=== PATIENT | female | born 1990 | race Caucasian/White ===

== ENCOUNTER → 2020-12-09 09:19 | Outpatient (BNVA) | payer BC, MEDICAID, SELFPAY | PROVIDERS: Visit Provider Obstetrics & Gynecology | DX: Z32.01 Encounter for pregnancy test, result positive (principal) | CPT/HCPCS: 81025 ==

== ENCOUNTER 2020-12-19 13:30 | Emergency (ER) | payer BC, MEDICAID, SELFPAY ==
[2020-12-19 13:48] VITALS: BP 159/88; PULSE 80; RESP 18; TEMP 36.9; O2SAT 100; BMI 36.9
--- NOTE | 2020-12-19 14:37 | US_ITS ---
WS: [id number] Limited obstetrical ultrasound. HISTORY: Vaginal bleeding. COMPARISON: None. Transvaginal and transabdominal imaging is submitted. Uterus is slightly enlarged. Along the endometrial canal is heterogeneous soft tissue. There is a sma ll amount of fluid component with increased soft tissue echogenicity. There is a fluid/fluid layer delgado ggesting hemorrhage. There is no identifiable pole or cardiac activity. No yolk sac. Complex ma terial consistent with retained products of the conception and blood causing mild widening of the end ocervical canal. There is a small amount of free fluid in the cul-de-sac. US/US OB limited [id number] IMPRESSION: 1. Large amount of retained complex material in the endometrium and along the e ndocervical canal. Echogenicity suggest hemorrhagic components with minimal res idual simple fluid. Findings are consistent with incomplete spontaneous abortio n with hemorrhagic material. 2. No cardiac activity or pole identified.
--- NOTE | 2020-12-19 14:52 | PC.PHAR ---
pt states she takes no rx or otc medications-pt states she hasnt had gabapentin 100mg,fluoxetine 20mg,risperidone 1mg lisinopril 20mg and hctz 12.5mg since jul or aug 2020 pt states she was waiting on her insurance
[2020-12-19 14:54] LABS: Basophils # 0.1 10^3/uL (0.0-0.1); Basophils % 0.6 %; Eosinophils # 0.4 10^3/uL (0.0-0.8); Eosinophils % 2.7 %; Hematocrit 42.8 % (37.0-47.0); Hemoglobin 13.8 g/dL (11.5-15.3); Lymphocytes # 2.7 10^3/uL (0.8-4.8); Mean Corpuscular HGB Conc 32.2 g/dL (30.0-36.0); Mean Corpuscular Hemoglobin 26.5 pg (28.0-34.0); Mean Corpuscular Volume 82.3 fL (81-99); Mean Platelet Volume 9.9 fL (7.4-10.4); Monocytes # 0.6 10^3/uL (0.2-0.9); Monocytes % 4.4 %; Neutrophils # 9.88 10^3/uL (1.8-7.7); Neutrophils % 71.9 %; Nucleated Red Blood Cells % 0 %; Platelet Count 346 10^3/cmm (130-400); Red Cell Distribution Width 13.8 % (12.1-15.1); White Blood Count 13.7 10^3/uL (4.0-10.0)
--- NOTE | 2020-12-19 14:55 | W.ED.FEMALGU ---
HPI - Female Genitourinary General: Chief complaint: Urogenital-Female Stated complaint: suspects miscarriage, 7wks Time Seen by Provider: 12/19/20 14:28 History of Present Illness: HPI Narrative: 30-year-old female presents to the emergency room with complaint of vaginal bleeding and pelvic cramping. Patient is Ab1. She has not had this confirmed by ultrasound as being intrauterine. She denies any dysuria urgency or frequency no other abdominal pain no vomiting or diarrhea. Patient has had previous miscarriages this morning she had a syncopal-like episode after standing up lasted for just a few seconds. MD elicited complaint: vaginal bleeding Pertinent past history: prior miscarriages Onset (ago): hour(s) Location of symptoms: pelvis Severity: moderate Quality of pain: cramping Vaginal discharge: none Vaginal bleeding: moderate Exacerbating factors: none Relieving factors: none Associated symptoms: Reports nausea and vaginal bleeding; Deny abdominal pain, short of breath, fevers/chills, headache(s), rash, seizures, syncope, vaginal discharge or weakness Treatment prior to arrival: none Sexual activity: No Date of Last Menstrual Period: 10/31/20 Review of Systems Const: Denies: fever(s), chills, body aches, change in appetite, fatigue or malaise ENMT: Denies: throat pain, ear or mastoid pain, nasal discharge or nasal congestion Card: Denies: syncope Resp: Denies: dyspnea, productive cough or non-productive cough GI: Reports: nausea; Denies: abdominal pain : Denies: vaginal discharge Skin/Breast: Denies: rash or pruritus Neuro: Denies: headache(s) [facility] Female Reproductive History: Date of last menstrual period: 10/31/20 Physical Exam Const: COMMON NORMALS: no acute distress GENERAL APPEARANCE: cooperative and comfortable ORIENTATION/CONSCIOUSNESS: Yes awake, Yes oriented to person, Yes oriented to place and Yes oriented to time HENMT: COMMON NORMALS: normocephalic, atraumatic and hearing grossly normal bilaterally HEAD & SCALP: normocephalic and atraumatic Neck/C-Spine: COMMON NORMALS: full ROM, no lymphadenopathy, supple and no JVD Lymph: LYMPHATIC: no lymphadenopathy noted and no lymphedema noted Resp: COMMON NORMALS: normal respiratory effort, No retractions, No use of accessory muscles and clear to auscultation bilaterally AUSCULTATION: clear to auscultation bilaterally Cardio: COMMON NORMALS: no JVD, regular rate, regular rhythm and No murmurs present (Cardio) RATE: regular rate RHYTHM: regular rhythm GI: COMMON NORMALS: Soft to palpation and No hepatosplenomegaly present AUSCULTATION: Yes normoactive bowel sounds PALPATION: Yes Soft to palpation, No Tenderness to palpation present (GI), No Guarding due to palpation present (GI) and Yes No hepatosplenomegaly present : SPECULUM EXAM - VAGINA: Yes vaginal bleeding OB/EXTERNAL & SPECULUM: vaginal bleeding OTHER: Patient placed in dorsolithotomy position. Speculum introduced cervix visualized scant amount of bleeding. No POC in the office. GC chlamydia and wet mount done. Extremity: COMMON NORMALS: normal to inspection, capillary refill normal, no clubbing, cyanosis or edema, no calf tenderness and no pedal edema Neuro: SENSORIUM/ORIENTATION: Yes oriented to person, Yes oriented to place and Yes oriented to time Skin: COMMON NORMALS: no rashes or lesions noted GENERAL SKIN EXAM: no rashes or lesions noted Course Vital Signs: Vital signs: Vital Signs Temperature 98.4 F 12/19/20 13:48 Pulse Rate 80 12/19/20 13:48 Respiratory Rate 18 12/19/20 13:48 Blood Pressure 159/88 12/19/20 13:48 Pulse Oximetry 100 12/19/20 13:48 MDM - Female MDM Narrative: Medical decision making narrative: Ultrasound shows intrauterine however there is no heart tones. She will need a follow-up beta-hCG and is at least 3 days to reevaluate. Did warn her she could have heavier bleeding before then. The radiologist read it as having POC in the os discussed with the patient she likely will have heavier bleeding and passed some tissue if bleeding becomes excessive she should return to be reevaluated. Lab Data: Labs: Lab Results 12/19/20 12/19/20 12/19/20 Range/Units 14:30 14:38 14:38 WBC 13.7 H (4.0-10.0) 10^3/ uL RBC 5.20 (4.1-5.3) 10^6/u L Hgb 13.8 (11.5-15.3) g/dL Hct 42.8 (37.0-47.0) % MCV 82.3 (81-99) fL MCH 26.5 L (28.0-34.0) pg MCHC 32.2 (30.0-36.0) g/dL RDW 13.8 (12.1-15.1) % Plt Count 346 (130-400) 10^3/c mm MPV 9.9 (7.4-10.4) fL Neut % (Auto) 71.9 % Lymph % (Auto) 20.0 % Atlantic % (Auto) 4.4 % Eos % (Auto) 2.7 % Baso % (Auto) 0.6 % Neut # (Auto) 9.88 H (1.8-7.7) 10^3/u L Lymph # (Auto) 2.7 (0.8-4.8) 10^3/u L [place] # (Auto) 0.6 (0.2-0.9) 10^3/u L Eos # (Auto) 0.4 (0.0-0.8) 10^3/u L Baso # (Auto) 0.1 (0.0-0.1) 10^3/u L Nucleated RBC % (a uto) 0 % Nucleated RBCs # 0.0 /100WBC Sodium (136-145) mmol/L Potassium (3.5-5.1) mmol/L Chloride (98-107) mmol/L Carbon Dioxide (22-29) mmol/L Anion Gap (5-19) BUN (6-20) mg/dL Creatinine (0.5-0.9) mg/dL GFR Calculation (90-130) mL/min Glucose (65-115) mg/dL Calculated Osmolal ity (285-295) mOsm/k g Calcium (8.5-10.5) mg/dL Total Bilirubin (0.15-1.2) mg/dL AST (0-32) U/L ALT (0-33) U/L Alkaline Phosphata se (35-105) IU/L Total Protein (6.6-8.7) g/dL Albumin (3.5-5.2) g/dL Globulin (1.3-4.6) g/dL Ser , Eliceo i-Qnt mIU/mL Urine Color Yellow (Yellow) Urine Appearance Clear (CLEAR) Urine pH 5 (5-7) Ur Specific Gravit y 1.010 (1.005-1.030) Urine Protein Neg (Negative) Urine Glucose (UA) Norm (Normal) Urine Ketones Negative (Negative) Urine Blood 3+ H (Negative) Urine Nitrate Negative (Negative) Urine Bilirubin Neg (Negative) Urine Urobilinogen Norm (Negative) mg/dL Ur Leukocyte Debi ase Negative (Negative) Urine RBC 10-15 H (0-2) /hpf Urine WBC None (0-5) /hpf Ur Squamous Epith Cells None (0-5) /hpf Amorphous Sediment Not Reportable Urine Bacteria Trace (NONE) /hpf Blood Type O Positive Rho(D) Type Positive / 4+ 12/19/20 Range/Units 14:38 WBC (4.0-10.0) 10^3/ uL RBC (4.1-5.3) 10^6/u L Hgb (11.5-15.3) g/dL Hct (37.0-47.0) % MCV (81-99) fL MCH (28.0-34.0) pg MCHC (30.0-36.0) g/dL RDW (12.1-15.1) % Plt Count (130-400) 10^3/c mm MPV (7.4-10.4) fL Neut % (Auto) % Lymph % (Auto) % Atlantic % (Auto) % Eos % (Auto) % Baso % (Auto) % Neut # (Auto) (1.8-7.7) 10^3/u L Lymph # (Auto) (0.8-4.8) 10^3/u L Atlantic # (Auto) (0.2-0.9) 10^3/u L Eos # (Auto) (0.0-0.8) 10^3/u L Baso # (Auto) (0.0-0.1) 10^3/u L Nucleated RBC % (a uto) % Nucleated RBCs # /100WBC Sodium 135 L (136-145) mmol/L Potassium 3.3 L (3.5-5.1) mmol/L Chloride 99 (98-107) mmol/L Carbon Dioxide 24 (22-29) mmol/L Anion Gap 15.3 (5-19) BUN 6 (6-20) mg/dL Creatinine 0.7 (0.5-0.9) mg/dL GFR Calculation 98.3 (90-130) mL/min Glucose 82 (65-115) mg/dL Calculated Osmolal ity 277 L (285-295) mOsm/k g Calcium 9.1 (8.5-10.5) mg/dL Total Bilirubin 0.3 (0.15-1.2) mg/dL AST 10 (0-32) U/L ALT 12 (0-33) U/L Alkaline Phosphata se 89 (35-105) IU/L Total Protein 7.5 (6.6-8.7) g/dL Albumin 4.4 (3.5-5.2) g/dL Globulin 3.1 (1.3-4.6) g/dL Ser , [place] i-Qnt 8029.00 mIU/mL Urine Color (Yellow) Urine Appearance (CLEAR) Urine pH (5-7) Ur Specific Gravit y (1.005-1.030) Urine Protein (Negative) Urine Glucose (UA) (Normal) Urine Ketones (Negative) Urine Blood (Negative) Urine Nitrate (Negative) Urine Bilirubin (Negative) Urine Urobilinogen (Negative) mg/dL Ur Leukocyte Debi ase (Negative) Urine RBC (0-2) /hpf Urine WBC (0-5) /hpf Ur Squamous Epith Cells (0-5) /hpf Amorphous Sediment Urine Bacteria (NONE) /hpf Blood Type Rho(D) Type Discharge Plan Discharge Patient Disposition: Home Clinical Impression: , spontaneous threatened Condition: Stable Prescriptions: No Action No Known Home Medications RF: 0 Discharge Orders: Discharge ED (Routine); Ordered 12/19/20 Ordered By: Prem Gomez Discharge Diet: Usual diet Discharge Activity: Limit activity as instructed Patient Instructions: Opioid Safety Activity Restrictions/Additional Instructions: [facility]. Follow-up with beta-hCG in 3 to 4 days in your primary care doctor's office. If bleeding increases to more than 1 pad per hour return to the emergency room. Coding Level of Care Code ED Reflow Operator for Tommie Gipson
[2020-12-19 15:23] LABS: Add Urine Microscopic? YES; Bilirubin Urine Neg (Negative); Blood Urine 3+ (Negative); Glucose Urine UA Norm (Normal); Ketones Urine Negative (Negative); Leukocyte Esterase Urine Negative (Negative); Nitrate Urine Negative (Negative); Protein Urine Neg (Negative); Urine Appearance Clear (CLEAR); Urine Color Yellow (Yellow); Urobilinogen Urine Norm (Negative); pH Urine 5 (5-7)
[2020-12-19 15:24] LABS: Add Urine Culture? Yes; Bacteria Urine TRACE /hpf
--- NOTE | 2020-12-19 15:47 | PC.NURSE ---
Pelvic exam performed by Dr Gomez, chaperoned by this nurse. Swabs obtained and sent to lab.
[2020-12-19 16:06] LABS: Alanine Aminotransferase 12 U/L (0-33); Albumin Level 4.4 g/dL (3.5-5.2); Alkaline Phosphatase 89 IU/L (35-105); Anion Gap 15.3 (5-19); Aspartate Amino Transferase 10 U/L (0-32); Blood Urea Nitrogen 6 mg/dL (6-20); Calcium 9.1 mg/dL (8.5-10.5); Carbon Dioxide 24 mmol/L (22-29); Chloride 99 mmol/L (98-107); Globulin 3.1 g/dL (1.3-4.6); Glomerular Filtration Rate 98.3 mL/min (90-130); Glucose 82 mg/dL (65-115); Osmolality Calculated 277 mOsm/kg (285-295); Potassium 3.3 mmol/L (3.5-5.1); Sodium 135 mmol/L (136-145); Total Bilirubin 0.3 mg/dL (0.15-1.2); Total Protein 7.5 g/dL (6.6-8.7)
== END 2020-12-19 16:11 | disposition home or self-care (01) ==
PROVIDERS: Nurse Practitioner Family; Emergency Provider Family Medicine
DX: O20.0 Threatened abortion (principal); Z3A.01 Less than 8 weeks gestation of pregnancy
CPT/HCPCS: 76815; 80053; 81001; 84702; 85025; 86900; 87086; 87210; 87491; 87591; 99284

== ENCOUNTER → 2020-12-23 13:52 | Outpatient (BNVA) | payer BC, MEDICAID, SELFPAY | PROVIDERS: Visit Provider Obstetrics & Gynecology | DX: O20.0 Threatened abortion (principal) | CPT/HCPCS: 84702 ==

== ENCOUNTER → 2020-12-26 09:20 | Outpatient (BNVA) | payer BC, MEDICAID, SELFPAY | PROVIDERS: Visit Provider Nurse Practitioner Women's Health | DX: O03.4 Incomplete spontaneous abortion without complication (principal) | CPT/HCPCS: 81000; 84702; 85025 ==

== ENCOUNTER → 2021-01-09 08:42 | Outpatient (BNVA) | payer BC, MEDICAID, SELFPAY | PROVIDERS: Visit Provider Nurse Practitioner Women's Health | DX: O03.4 Incomplete spontaneous abortion without complication (principal); I10 Essential (primary) hypertension | CPT/HCPCS: 84702 ==

== ENCOUNTER 2021-01-27 08:45 | Outpatient (CLI) | payer BC, MEDICAID, SELFPAY ==
--- NOTE | 2021-01-27 08:51 | MM_ITS ---
WS: [id number] BILATERAL DIGITAL DIAGNOSTIC MAMMOGRAM MAMMOGRAPHY WITH CAD CLINICAL INFORMATION: CHANGES IN SKIN;BENJAMÍN BREAST LUMPS HISTORY: Bilateral breast soreness. History of left mastitis COMPARISON: None. TECHNIQUE: Bilateral CC, MLO, and ML views. FINDINGS: Scattered fibroglandular densities bilaterally. Asymmetric density outer left breast. This persists o n spot compression views. Ultrasound is pending. No suspicious abnormalities in the right breast. A f ew incidental punctate calcifications. ULTRASOUND BREAST LEFT TECHNIQUE: Ultrasound left breast focused area of concern. CLINICAL INFORMATION: CHANGES IN SKIN;BENJAMÍN BREAST LUMPS COMPARISON: None. FINDINGS: Ultrasound left breast 12-3 o'clock. Normal underlying breast tissue. No evidence of underlying cysti c or solid mass or lesion. No suspicious abnormalities. MM/[id number] IMPRESSION: BI-RADS: 2-Benign FOLLOW UP: Age 40 Recommend annual screening mammography age 40
== END 2021-01-27 08:46 | disposition home or self-care (01) ==
LOC: RADSHAW 08:48
PROVIDERS: PCP Nurse Practitioner Family; Visit Provider Nurse Practitioner Family
DX: N64.59 Other signs and symptoms in breast (principal); N63.10 Unspecified lump in the right breast, unspecified quadrant; N63.20 Unspecified lump in the left breast, unspecified quadrant
CPT/HCPCS: 76642; 77066

== ENCOUNTER → 2022-02-27 13:07 | Outpatient (BNVA) | payer BC, MEDICAID, SELFPAY | PROVIDERS: Visit Provider Obstetrics & Gynecology | DX: Z34.90 Encounter for supervision of normal pregnancy, unspecified, unspecified trimester (principal) | CPT/HCPCS: 84702 ==

== ENCOUNTER 2022-03-03 12:42 | Outpatient (CLI) | payer BC, MEDICAID, SELFPAY | END 2022-03-03 12:43 | disposition home or self-care (01) | LOC: LAB 12:44 | PROVIDERS: Visit Provider Obstetrics & Gynecology | DX: O20.0 Threatened abortion (principal) | CPT/HCPCS: 36415; 84702 ==

== ENCOUNTER → 2022-03-24 08:48 | Outpatient (BNVA) | payer BC, MEDICAID, SELFPAY | PROVIDERS: Visit Provider Obstetrics & Gynecology | DX: O03.9 Complete or unspecified spontaneous abortion without complication (principal) | CPT/HCPCS: 84702 ==

== ENCOUNTER → 2022-05-11 10:39 | Outpatient (BNVA) | payer BC, MEDICAID, SELFPAY | PROVIDERS: Visit Provider Obstetrics & Gynecology | DX: N96 Recurrent pregnancy loss (principal) | CPT/HCPCS: 85613; 85730; 86038; 86146; 86147 ==

== ENCOUNTER → 2022-09-03 09:50 | Outpatient (BNVA) | payer BC, MEDICAID, SELFPAY | PROVIDERS: Visit Provider Nurse Practitioner Women's Health | DX: Z32.00 Encounter for pregnancy test, result unknown (principal); N92.6 Irregular menstruation, unspecified | CPT/HCPCS: 81000; 81025 ==

== ENCOUNTER 2022-09-07 12:31 | Outpatient (CLI) | payer BC, MEDICAID, SELFPAY ==
[2022-09-07 14:29] LABS: Alanine Aminotransferase 25 U/L (0-33); Albumin Level 4.4 g/dL (3.5-5.2); Alkaline Phosphatase 61 U/L (35-105); Aspartate Amino Transferase 17 U/L (0-32); Globulin 2.7 g/dL (1.3-4.6); Total Bilirubin 0.3 mg/dL (0.15-1.2); Total Protein 7.1 g/dL (6.6-8.7)
[2022-09-11 12:24] LABS: Total Bile Acids 12 umol/L (0-19)
== END 2022-09-07 12:32 | disposition home or self-care (01) ==
LOC: LAB 12:35
PROVIDERS: PCP Family Medicine; Visit Provider Nurse Practitioner Women's Health
DX: N92.6 Irregular menstruation, unspecified (principal); L29.9 Pruritus, unspecified
CPT/HCPCS: 36415; 80076; 82010; 84702

== ENCOUNTER 2022-09-10 08:41 | Emergency (ER) | payer BC, MEDICAID, SELFPAY ==
[2022-09-10 08:44] VITALS: BP 136/96; PULSE 91; RESP 18; TEMP 36.8; O2SAT 100; BMI 38.4
--- NOTE | 2022-09-10 09:09 | PC.PHAR ---
PT STATES SHE HAS ONLY BEEN TAKING THE MEDICATIONS ENTERED PT STATES SHE HAS BEEN TAKING LABETALOL 100MG BID STATES SHE HAD A BUILD UP EXT MED HISTORY SHOWS LAST FILLED 04/29/22 30D/S-PT STATES SINCE July SHE HAS STOP TAKING QUETIAPINE 200MG DAILY (FILLED 08/12/22 30D/S)-LISINOPRIL 40MG QAM AND 20MG PO QPM (FILLED 08/12/22 30D/S)-GABAPENTIN 100MG TAKE 200MG TID (FILLED 07/27/22 90D/S)-FENOFIBRATE 145MG DAILY (FILLED 07/21/22 30D/S)-LIPITOR 20MG DAILY (FILLED 07/13/22 30D/S)-TRAZODONE 50MG TAKE 100MG PO BEDTIME PRN (FILLED 07/13/22 30D/S)-FLUOXETINE 20MG DAILY (FILLED 07/13/22 30D/S)-BUPROPION XL 300MG QAM (FILLED 07/13/22 30D/S)-
[2022-09-10 09:26] VITALS: BP 136/96; PULSE 91; RESP 18; TEMP 36.8; O2SAT 100
[2022-09-10] MEDS: sodium chloride 0.9% 1,000 ML 999 ML IV (09:30)
--- NOTE | 2022-09-10 09:36 | W.ED.PREGNAN ---
HPI - General: Chief complaint: Abdominal Pain Stated complaint: 7 weeks and cramping Time Seen by Provider: 09/10/22 09:06 Source: patient Mode of arrival: ambulatory History of Present Illness: 32-year-old female presents presents emergency room with complaint of vaginal discharge. Began yesterday. Patient is G8, P7 SAB 3. She is currently at 7 weeks gestation with a EDC of April 27, 2023. No details on previous miscarriage given by the patient at the bedside. She has psychiatric issues but no major medical issues she did have borderline gestational hypertension previously. She is currently on labetalol. According to chart patient is O+. MD Complaint: vaginal discharge Onset (ago): day(s) Pain Consistency: intermittent Location: pelvis Severity: mild Quality: Cramping Relieving factors: none Exacerbating factors: none Vaginal discharge: other (Brownish discharge) Date of Last Menstrual Period: 10/31/20 Associated symptoms: Reports vaginal discharge; Deny abdominal pain, dyspareunia, dysuria, headache(s), malaise, nausea, rash, seizures, short of breath, syncope, vaginal bleeding, visual changes, vomiting or weakness Review of Systems Const: Denies: fever(s), chills, fatigue or malaise ENMT: Denies: throat pain, ear or mastoid pain, nasal discharge or nasal congestion Card: Denies: chest pain or syncope Resp: Denies: dyspnea, productive cough or non-productive cough GI: Denies: abdominal pain, nausea or vomiting : Reports: vaginal discharge; Denies: dysuria or dyspareunia Skin/Breast: Denies: rash or pruritus Neuro: Denies: headache(s) PFS ED PFSH: Medical History Anxiety and depression Has had symptoms on and off for years and is being managed by primary care provider. She has a referral to see behavioral health care but has not seen them as yet Hypertension Diagnosed in 2017 and is on medication managed by PMD. 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 [facility] Surgical History History of tonsillectomy and adenoidectomy (~1997) polyps removed Hx of knee surgery R knee x 2 2014 2015 Family History Mother Diabetes Hypercholesteremia Hypertension Father Diabetes Hypercholesteremia Hypertension Grandfather Diabetes Maternal and Paternal Hypercholesteremia Maternal and Paternal Hypertension Maternal and Paternal Stroke Maternal Heart disease maternal and paternal Grandmother Diabetes Maternal and Paternal Hypercholesteremia Maternal and Paternal Hypertension Maternal and Paternal Heart disease maternal and paternal Denies family history of Colon cancer Ovarian cancer Breast cancer Uterine cancer Thyroid condition Female Reproductive History: Date of last menstrual period: 10/31/20 Physical Exam Const: GENERAL APPEARANCE: cooperative and comfortable ORIENTATION/CONSCIOUSNESS: Yes awake, Yes oriented to person, Yes oriented to place and Yes oriented to time HENMT: COMMON NORMALS: normocephalic, atraumatic, hearing grossly normal bilaterally and external ears normal HEAD & SCALP: normocephalic and atraumatic EXTERNAL EAR: Yes external ears normal Resp: COMMON NORMALS: normal respiratory effort, No retractions, No use of accessory muscles and clear to auscultation bilaterally AUSCULTATION: clear to auscultation bilaterally Cardio: COMMON NORMALS: regular rate, regular rhythm and No murmurs present (Cardio) RATE: regular rate RHYTHM: regular rhythm GI: COMMON NORMALS: Soft to palpation and No hepatosplenomegaly present AUSCULTATION: Yes normoactive bowel sounds PALPATION: Yes Soft to palpation, No Tenderness to palpation present (GI), No Guarding due to palpation present (GI) and Yes No hepatosplenomegaly present : SPECULUM EXAM - VAGINA: No vaginal bleeding OB/EXTERNAL & SPECULUM: No vaginal bleeding OTHER: Patient placed in dorsolithotomy position normal external female genitalia speculum introduced cervix visualized is normal no active bleeding no fluid leak noted. GC chlamydia and wet mount done Extremity: COMMON NORMALS: normal to inspection, capillary refill normal, no clubbing, cyanosis or edema, no calf tenderness and no pedal edema Neuro: SENSORIUM/ORIENTATION: Yes oriented to person, Yes oriented to place and Yes oriented to time Skin: COMMON NORMALS: no rashes or lesions noted GENERAL SKIN EXAM: no rashes or lesions noted Course Vital Signs: Vital signs: Vital Signs Temperature 98.2 F 09/10/22 09:26 Pulse Rate 91 09/10/22 09:26 Respiratory Rate 18 09/10/22 09:26 Blood Pressure 136/96 09/10/22 09:26 Pulse Oximetry 100 09/10/22 09:26 Oxygen Delivery Me thod 09/10/22 09:26 MDM - OB/Uterine Contractions Medical Decision Making Wet positive for bacterial vaginosis. Treat patient with Diclegis for hyperemesis follow-up with primary OB if is further problems. Blood pressure normotensive at this time remain off of medications further instructions per her primary OB. Medical Records I reviewed the patient's medical records. Lab Data I reviewed the patient's lab results. Laboratory Results Urine Color Yellow (Yellow) 09/10/22 09:30 Urine Appearance Clear (CLEAR) 09/10/22 09:30 Urine pH 5 (5-7) 09/10/22 09:30 Ur Specific [place] 1.030 (1.005-1.030) 09/10/22 09:30 Urine Protein Neg (Negative) 09/10/22 09:30 Urine Glucose (UA) Norm (Normal) 09/10/22 09:30 Urine Ketones Negative (Negative) 09/10/22 09:30 Urine Blood Neg (Negative) 09/10/22 09:30 Urine Nitrate Negative (Negative) 09/10/22 09:30 Urine Bilirubin Neg (Negative) 09/10/22 09:30 Urine Urobilinogen Neg mg/dL (Negative) 09/10/22 09:30 Ur Leukocyte Esterase Negative (Negative) 09/10/22 09:30 Discharge Plan Discharge Patient Disposition: Home Clinical Impression: Bacterial vaginosis, Hyperemesis gravidarum Condition: Stable Prescriptions: New metronidazole 500 mg tablet 500 mg PO BID 10 Days Qty: 20 0RF Diclegis 10-10 mg tablet,delayed release (DR/EC) 1 tab PO BID Qty: 90 0RF Rx Instructions: 2 tablets in the morning and 1 tablet at night. No Action labetalol 100 mg tablet 100 mg PO BID omega 4-ruc-kva-fish oil [Fish Oil] 300-1,000 mg capsule 2 cap PO DAILY Tylenol Ex Str Rapid Release 500 mg Tablet 1,000 mg PO Q6H PRN (Reason: Pain) M-Domenica Plus 27 mg iron- 1 mg tablet 1 tab PO DAILY ondansetron 4 mg tablet,disintegrating 4 mg PO Q6H PRN (Reason: Nausea And Vomiting) Discharge Orders: Discharge ED (Routine); Ordered 09/10/22 Ordered By: Prem Gomez Referrals: Jovany Anderson MD [Primary Care Provider] - Discharge Diet: Usual diet Discharge Activity: Resume usual activity Patient Instructions: Opioid Safety, Pain Management Activity Restrictions/Additional Instructions: You are seen today for nausea and vomiting and cramping. The vaginal discharge is due to bacterial vaginosis. Will start on metronidazole 1 tablet twice daily for 10 days. Additionally had symptoms of hyperemesis we will give you Diclegis to use for prophylaxis 1 tablet in the morning 2 tablets at night follow-up with your primary care doctor or OB within the next week. Coding Level of Care Code ED Jai Alai Player for Chg Fwd Exam Comprehensive
[2022-09-10 09:42] LABS: Add Urine Microscopic? NO; Charge for UA Resulting for Rev
[2022-09-10 09:46] LABS: Bilirubin Urine Neg (Negative); Blood Urine Neg (Negative); Glucose Urine UA Norm (Normal); Ketones Urine Negative (Negative); Leukocyte Esterase Urine Negative (Negative); Nitrate Urine Negative (Negative); Protein Urine Neg (Negative); Urine Appearance Clear (CLEAR); Urine Color Yellow (Yellow); Urobilinogen Urine Neg (Negative); pH Urine 5 (5-7)
[2022-09-10] MEDS: promethazine 25 mg/mL SDV 1 mL IM (11:36)
== END 2022-09-10 12:23 | disposition home or self-care (01) ==
PROVIDERS: Emergency Provider Family Medicine; PCP Family Medicine
DX: O21.0 Mild hyperemesis gravidarum (principal); O23.591 Infection of other part of genital tract in pregnancy, first trimester; Z3A.01 Less than 8 weeks gestation of pregnancy
CPT/HCPCS: 81003; 87210; 87491; 87591; 87661; 96360; 96372; 99284; J2550; J7030

== ENCOUNTER → 2022-09-24 10:01 | Outpatient (BNVA) | payer BC, MEDICAID, SELFPAY | PROVIDERS: PCP Family Medicine; Visit Provider Obstetrics & Gynecology | DX: Z36.87 Encounter for antenatal screening for uncertain dates (principal); Z3A.09 9 weeks gestation of pregnancy | CPT/HCPCS: 76801 ==

== ENCOUNTER 2022-09-24 11:14 | Outpatient (CLI) | payer BC, MEDICAID, SELFPAY ==
--- NOTE | 2022-09-24 11:36 | ECG_ITS ---
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 Measurements Intervals [place] Rate: 75 P: 37 VT: 129 QRS: 28 QRSD: 94 T: 30 QT: 369 QTc: 412 Interpretive Statements SINUS RHYTHM MINIMAL ST DEPRESSION [0.025+ mV ST DEPRESSION] No previous ECG available for comparison Electronically Signed On 09-24-2022 19:02:42 INSPECTOR FINAL ASSEMBLY MECHANICAL by Jorge Crane M.D. [email or web address]
== END 2022-09-24 11:15 | disposition home or self-care (01) ==
LOC: RT 11:16
PROVIDERS: PCP Family Medicine; Visit Provider Nurse Practitioner Women's Health
DX: I49.9 Cardiac arrhythmia, unspecified (principal)
CPT/HCPCS: 93005

== ENCOUNTER → 2022-10-05 10:00 | Outpatient (BNVA) | payer BC, MEDICAID, SELFPAY | PROVIDERS: PCP Family Medicine; Visit Provider Obstetrics & Gynecology | DX: O09.899 Supervision of other high risk pregnancies, unspecified trimester (principal) | CPT/HCPCS: 80307; 81000; 87086 ==

== ENCOUNTER 2022-10-06 11:42 | Outpatient (CLI) | payer BC, MEDICAID, SELFPAY ==
[2022-10-06 12:39] LABS: Hematocrit 39.1 % (37.0-47.0); Hemoglobin 13.2 g/dL (11.5-15.3); Mean Corpuscular HGB Conc 33.8 g/dL (30.0-36.0); Mean Corpuscular Hemoglobin 28.3 pg (28.0-34.0); Mean Corpuscular Volume 83.7 fl (81-99); Mean Platelet Volume 9.9 fL (7.4-10.4); Platelet Count 320 10^3/cmm (130-400); Red Blood Count 4.67 10^6/uL (4.1-5.3); Red Cell Distribution Width 14.6 % (12.1-15.1)
[2022-10-06 12:56] LABS: Estmated Average Glucose 117; Hemoglobin A1C 5.7 % (4.0-6.0)
[2022-10-06 13:24] LABS: Rubella IgG 162.2 IU/mL (0.0-10.0)
[2022-10-06 13:25] LABS: Hepatitis B Surface Antigen Non-Reactive (Nonreactive); Hepatitis C Virus Antibody Non-Reactive (Nonreactive)
[2022-10-06 14:06] LABS: HIV 1 & 2 Antibody Non-Reactive (Non-Reactiv); HIV 1 & 2 Antigen Non-Reactive (Non-Reactiv)
== END 2022-10-06 11:43 | disposition home or self-care (01) ==
PROVIDERS: PCP Family Medicine; Visit Provider Obstetrics & Gynecology
DX: O09.899 Supervision of other high risk pregnancies, unspecified trimester (principal)
CPT/HCPCS: 36415; 83036; 85027; 86762; 86803; 86850; 86900; 87340; 87806

== ENCOUNTER 2022-10-16 14:46 | Emergency (ER) | payer BC, MEDICAID, SELFPAY ==
[2022-10-16 15:13] LABS: Basophils # 0.1 10^3/uL (0.0-0.1); Basophils % 0.4 %; Eosinophils # 0.3 10^3/uL (0.0-0.8); Eosinophils % 2.4 %; Hematocrit 36.6 % (37.0-47.0); Hemoglobin 12.5 g/dL (11.5-15.3); Lymphocytes # 2.3 10^3/uL (0.8-4.8); Lymphocytes % 19.1 %; Mean Corpuscular HGB Conc 34.2 g/dL (30.0-36.0); Mean Corpuscular Hemoglobin 28.5 pg (28.0-34.0); Mean Corpuscular Volume 83.4 fl (81-99); Mean Platelet Volume 9.7 fL (7.4-10.4); Monocytes # 0.6 10^3/uL (0.2-0.9); Monocytes % 4.8 %; Neutrophils # 8.65 10^3/uL (1.8-7.7); Neutrophils % 72.9 %; Nucleated Red Blood Cells % 0 %; Platelet Count 305 10^3/cmm (130-400); Red Blood Count 4.39 10^6/uL (4.1-5.3); Red Cell Distribution Width 14.6 % (12.1-15.1); White Blood Count 11.9 10^3/uL (4.0-10.0)
[2022-10-16 15:20] VITALS: BP 156/90; PULSE 74; RESP 16; TEMP 36.7; O2SAT 98
[2022-10-16 15:35] LABS: Alanine Aminotransferase 13 U/L (0-33); Albumin Level 3.9 g/dL (3.5-5.2); Alkaline Phosphatase 62 U/L (35-105); Anion Gap 17.7 (5-19); Aspartate Amino Transferase 14 U/L (0-32); Blood Urea Nitrogen 6 mg/dL (6-20); Calcium 9.6 mg/dL (8.5-10.5); Carbon Dioxide 23 mmol/L (22-29); Chloride 101 mmol/L (98-107); Globulin 2.7 g/dL (1.3-4.6); Glucose 86 mg/dL (65-115); Osmolality Calculated 283 mOsm/kg (285-295); Potassium 3.7 mmol/L (3.5-5.1); Sodium 138 mmol/L (136-145); Total Bilirubin 0.2 mg/dL (0.15-1.2); Total Protein 6.6 g/dL (6.6-8.7)
[2022-10-16 18:54] LABS: Glucose Point of Care 89 mg/dL (70-110)
== END 2022-10-16 17:08 | disposition left against medical advice (07) ==
PROVIDERS: Physician Assistant; Emergency Provider Family Medicine; PCP Family Medicine
DX: Z53.21 Procedure and treatment not carried out due to patient leaving prior to being seen by health care provider (principal)
CPT/HCPCS: 36415; 36416; 80053; 81000; 82962; 85025; 87491; 87591; 87661

== ENCOUNTER → 2022-11-13 07:53 | Outpatient (BNVA) | payer BC, SELFPAY | PROVIDERS: PCP Family Medicine; Visit Provider Nurse Practitioner Women's Health | DX: O09.899 Supervision of other high risk pregnancies, unspecified trimester (principal); O10.919 Unspecified pre-existing hypertension complicating pregnancy, unspecified trimester; O21.9 Vomiting of pregnancy, unspecified; F41.9 Anxiety disorder, unspecified; F32.A Depression, unspecified; F60.3 Borderline personality disorder | CPT/HCPCS: 81000 ==

== ENCOUNTER → 2022-12-09 14:56 | Outpatient (BNVA) | payer BC, SELFPAY | PROVIDERS: PCP Family Medicine; Visit Provider Obstetrics & Gynecology | DX: Z34.92 Encounter for supervision of normal pregnancy, unspecified, second trimester (principal) | CPT/HCPCS: 76805 ==

== ENCOUNTER → 2022-12-14 14:00 | Outpatient (BNVA) | payer BC, MEDICAID, SELFPAY | PROVIDERS: PCP Family Medicine; Visit Provider Obstetrics & Gynecology | DX: O09.899 Supervision of other high risk pregnancies, unspecified trimester (principal); Z3A.00 Weeks of gestation of pregnancy not specified | CPT/HCPCS: 81000 ==

== ENCOUNTER → 2023-01-11 14:22 | Outpatient (BNVA) | payer BC, MEDICAID, SELFPAY | PROVIDERS: PCP Family Medicine; Visit Provider Obstetrics & Gynecology | DX: O09.899 Supervision of other high risk pregnancies, unspecified trimester (principal) | CPT/HCPCS: 81000; 82950; 87086 ==

== ENCOUNTER → 2023-02-04 15:16 | Outpatient (BNVA) | payer BC, MEDICAID, SELFPAY | PROVIDERS: PCP Family Medicine; Visit Provider Obstetrics & Gynecology | DX: P08.1 Other heavy for gestational age newborn (principal) | CPT/HCPCS: 76816 ==

== ENCOUNTER → 2023-02-08 13:17 | Outpatient (BNVA) | payer BC, MEDICAID, SELFPAY | PROVIDERS: PCP Family Medicine; Visit Provider Obstetrics & Gynecology | DX: O09.899 Supervision of other high risk pregnancies, unspecified trimester (principal) | CPT/HCPCS: 81000 ==

== ENCOUNTER → 2023-02-19 15:50 | Outpatient (BNVA) | payer BC, MEDICAID, SELFPAY | PROVIDERS: PCP Family Medicine; Visit Provider Obstetrics & Gynecology | DX: O09.899 Supervision of other high risk pregnancies, unspecified trimester (principal); Z3A.30 30 weeks gestation of pregnancy | CPT/HCPCS: 81000; 85025 ==

== ENCOUNTER → 2023-03-05 15:28 | Outpatient (BNVA) | payer BC, MEDICAID, SELFPAY | PROVIDERS: PCP Family Medicine; Visit Provider Obstetrics & Gynecology | DX: O09.899 Supervision of other high risk pregnancies, unspecified trimester (principal); Z3A.32 32 weeks gestation of pregnancy | CPT/HCPCS: 81000; 82728; 83550 ==

== ENCOUNTER 2023-03-12 18:34 | Outpatient (CLI) | payer BC, SELFPAY ==
[2023-03-12] VITALS (9 sets, daily range): BP systolic 131–142; BP diastolic 78–89; PULSE 76–82; RESP 18; BMI 42.3
--- NOTE | 2023-03-14 18:07 | P.TNLD_ITS ---
OB L&D Triage Visit Information: Date of evaluation: 03/12/23 Comments/Additional reason(s) for visit: 33 y.o. A3 EDC April 28, 2023 At 33 w 3 d With chronic gestational hypertension On labetolol 100 mg po bid Presents to L&D because her BP at home was elevated to 150 / 90 No headache, blurry vision, abdominal pain No bleeding, fluid leakage + active movements Evaluation: monitor accelerations: Present 15x15 Vital signs: Weight 273 lbs; 5?6? VS: BPs see nursing record Awake, alert, comfortable Lungs: clear Cor: RRR Abd: soft, nontender Ext: no edema Care TYRA Calculator Estimated Delivery Date Method Current WG Current Estimate 04/28/23 LMP (Certain) 33w 4d Other Estimates 04/28/23 Ultrasound #1 33w 4d Specific Issues/Plans * N/V * CHRONIC HTN * ANXIETY/DEPRESSION/BORDERLINE PERSONALITY Final Diagnosis Final Diagnosis (1) Supervision of other high-risk : Status: Acute Code(s): O09.899 - Supervision of other high risk pregnancies, unspecified trimester (2) Chronic hypertension in : Plan: on labetolol BPs here borderline high Patient asymptomatic Plan continue labetolol Collect 24-h urine for protein, along with CBC, CMP f/u with Dr. Tang next week Call / return if headache, malaise, swelling, blurry vision, abdominal pain, vaginal bleeding, or fluid leakage Status: Acute Code(s): O10.919 - Unspecified pre-existing hypertension complicating , unspecified trimester Coding Level of Care Code Acute Code for Chg Fwd Diagnoses Supervision of other high-risk O09.899 Chronic hypertension in O10.919 Time Spent (min) 30
== END 2023-03-12 20:56 | disposition home or self-care (01) ==
LOC: OPOB 18:35 → OBGYN 18:40
PROVIDERS: PCP Family Medicine; Visit Provider Obstetrics & Gynecology
DX: O09.899 Supervision of other high risk pregnancies, unspecified trimester (principal); O10.919 Unspecified pre-existing hypertension complicating pregnancy, unspecified trimester; Z3A.33 33 weeks gestation of pregnancy
CPT/HCPCS: 59025; 99211

== ENCOUNTER 2023-03-14 07:00 | Outpatient (CLI) | payer BC, MEDICAID, SELFPAY ==
[2023-03-14 07:00] VITALS: BMI 41.6
[2023-03-14 07:30] VITALS: BP 141/86; PULSE 80
[2023-03-14 07:35] LABS: Basophils % 0.3 %; Eosinophils # 0.2 10^3/uL (0.0-0.8); Eosinophils % 2.5 %; Hematocrit 29.9 % (37.0-47.0); Hemoglobin 10.1 g/dL (11.5-15.3); Lymphocytes % 21.1 %; Mean Corpuscular HGB Conc 33.8 g/dL (30.0-36.0); Mean Corpuscular Hemoglobin 28.8 pg (28.0-34.0); Mean Corpuscular Volume 85.2 fl (81-99); Mean Platelet Volume 10.6 fL (7.4-10.4); Monocytes # 0.5 10^3/uL (0.2-0.9); Monocytes % 5.3 %; Neutrophils # 6.64 10^3/uL (1.8-7.7); Neutrophils % 70.3 %; Nucleated Red Blood Cells % 0 %; Platelet Count 210 10^3/cmm (130-400); Red Blood Count 3.51 10^6/uL (4.1-5.3); Red Cell Distribution Width 14.6 % (12.1-15.1); White Blood Count 9.5 10^3/uL (4.0-10.0)
[2023-03-14 07:50] VITALS: BP 140/83; PULSE 83
[2023-03-14 08:00] LABS: Alanine Aminotransferase 13 U/L (0-33); Albumin Level 3.3 g/dL (3.5-5.2); Alkaline Phosphatase 100 U/L (35-105); Aspartate Amino Transferase 17 U/L (0-32); Blood Urea Nitrogen 2 mg/dL (6-20); Calcium 8.7 mg/dL (8.5-10.5); Carbon Dioxide 25 mmol/L (22-29); Chloride 101 mmol/L (98-107); Globulin 2.7 g/dL (1.3-4.6); Glomerular Filtration Rate 115.1 mL/min (90-130); Glucose 87 mg/dL (65-115); Osmolality Calculated 280 mOsm/kg (285-295); Sodium 137 mmol/L (136-145); Total Bilirubin 0.2 mg/dL (0.15-1.2); Uric Acid 5.1 mg/dL (2.4-5.7)
[2023-03-14 08:09] LABS: Urine Total Protein 9.6 mg/dL (0-150)
[2023-03-14 08:10] VITALS: BP 132/88; PULSE 78
[2023-03-14 08:12] LABS: Total Volume, Urine 1350 mL; Urine Total Protein 24 Hour 129.6 mg/24hr (0-150)
[2023-03-14 08:30] VITALS: BP 132/88; PULSE 78; RESP 16; TEMP 36.3
== END 2023-03-14 08:30 | disposition home or self-care (01) ==
LOC: OPOB 07:10 → OBGYN 07:14
PROVIDERS: PCP Family Medicine; Visit Provider Obstetrics & Gynecology
DX: O10.919 Unspecified pre-existing hypertension complicating pregnancy, unspecified trimester (principal); Z3A.33 33 weeks gestation of pregnancy
CPT/HCPCS: 36415; 59025; 80053; 84156; 84550; 85025; 99211

== ENCOUNTER 2023-03-17 23:45 | Outpatient (CLI) | payer BC, MEDICAID, SELFPAY ==
[2023-03-18] VITALS (8 sets, daily range): BP systolic 130–153; BP diastolic 81–106; PULSE 81–110; RESP 15–16; TEMP 36.2; BMI 41.0
[2023-03-18 00:32] LABS: Nitrazine Paper, PH Negative
[2023-03-18 00:53] LABS: Actim Prom Negative
[2023-03-18 00:55] LABS: Bilirubin Urine 1+ (Negative); Blood Urine 2+ (Negative); Glucose Urine UA Norm (Normal); Ketones Urine 1+ (Negative); Leukocyte Esterase Urine 2+ (Negative); Nitrate Urine Negative (Negative); Protein Urine Trace (Negative); RBC Urine 0-4 /hpf (0-2); Specific Gravity, Urine 1.025 (1.005-1.030); Urine Appearance Hazy (CLEAR); Urine Color Yellow (Yellow); Urobilinogen Urine 1 mg/dL (Negative); pH Urine 6 (5-7)
[2023-03-18 00:56] LABS: Add Urine Culture? No; Bacteria Urine 2+ /hpf; Calcium Oxalate Crystals Urine 0-4 /hpf; Mucus Urine 2+ /hpf; Squamous Epithelial Cell Urine 15-25 /hpf (0-5)
[2023-03-18 02:12] LABS: Protein Urine 1+ (Negative); Specific Gravity, Urine 1.025 (1.005-1.030); Urine Appearance Hazy (CLEAR); Urine Color Yellow (Yellow); pH Urine 6 (5-7)
[2023-03-18 02:13] LABS: Bacteria Urine 2+ /hpf; Bilirubin Urine 1+ (Negative); Blood Urine Neg (Negative); Glucose Urine UA Norm (Normal); Ketones Urine 1+ (Negative); Leukocyte Esterase Urine Negative (Negative); Mucus Urine 3+ /hpf; Nitrate Urine Negative (Negative); RBC Urine 0-4 /hpf (0-2); Urobilinogen Urine 4 mg/dL (Negative); WBC Urine 0-4 /hpf (0-5)
[2023-03-18 02:14] LABS: Add Urine Culture? No
== END 2023-03-18 01:30 | disposition home or self-care (01) ==
LOC: OPOB 23:51 → OBGYN 23:53
PROVIDERS: PCP Family Medicine; Visit Provider Obstetrics & Gynecology
DX: O26.893 Other specified pregnancy related conditions, third trimester (principal); N89.8 Other specified noninflammatory disorders of vagina; Z3A.34 34 weeks gestation of pregnancy
CPT/HCPCS: 59025; 81001; 83986; 84112; 87086; 99211

== ENCOUNTER → 2023-03-19 11:44 | Outpatient (BNVA) | payer BC, MEDICAID, SELFPAY | PROVIDERS: PCP Family Medicine; Visit Provider Obstetrics & Gynecology | DX: O09.899 Supervision of other high risk pregnancies, unspecified trimester (principal); Z3A.34 34 weeks gestation of pregnancy | CPT/HCPCS: 81000 ==

== ENCOUNTER → 2023-04-09 08:52 | Outpatient (BNVA) | payer BC, MEDICAID, SELFPAY | PROVIDERS: PCP Family Medicine; Visit Provider Obstetrics & Gynecology | DX: O09.899 Supervision of other high risk pregnancies, unspecified trimester (principal); O10.919 Unspecified pre-existing hypertension complicating pregnancy, unspecified trimester; O21.9 Vomiting of pregnancy, unspecified; F41.9 Anxiety disorder, unspecified; F32.A Depression, unspecified; F60.3 Borderline personality disorder; O99.013 Anemia complicating pregnancy, third trimester; Z3A.00 Weeks of gestation of pregnancy not specified | CPT/HCPCS: 81000; 87081; 87086 ==

== ENCOUNTER 2023-04-15 22:02 | Inpatient (IN) | payer BC, SELFPAY ==
[2023-04-15] VITALS (11 sets, daily range): BP systolic 157–187; BP diastolic 90–110; PULSE 71–90; BMI 41.5
[2023-04-15 22:25] LABS: Bilirubin Urine Neg (Negative); Blood Urine Neg (Negative); Glucose Urine UA Norm (Normal); Ketones Urine 3+ (Negative); Leukocyte Esterase Urine 2+ (Negative); Nitrate Urine Negative (Negative); Protein Urine Trace (Negative); RBC Urine 0-4 /hpf (0-2); Urine Appearance SL Hazy (CLEAR); Urine Color Yellow (Yellow); Urobilinogen Urine 4 mg/dL (Negative); pH Urine 7 (5-7)
[2023-04-15 22:26] LABS: Add Urine Culture? No; Amorphous Sediment Urine 1+ /hpf; Bacteria Urine 1+ /hpf; Mucus Urine 3+ /hpf; Squamous Epithelial Cell Urine 15-25 /hpf (0-5)
[2023-04-15 22:48] LABS: Amphetamines Screen Urine Negative (Negative); Barbiturates Screen Urine Negative (Negative); Benzodiazepines Screen Urine Positive (Negative); Cocaine Screen Urine Negative (Negative); Opiate Screen Urine Negative (Negative); PCP Screen Urine Negative (Negative); THC Screen Urine Positive (Negative)
[2023-04-15] MEDS: dextrose 5%-lactated ringers 1,000 ML 125 ML IV (23:21)
[2023-04-15] MEDS: labetalol 5 mg/mL SDV 20mL 20 MG IVP (23:24)
[2023-04-15] MEDS: metoclopramide 5 mg/mL SDV 2 mL 10 MG IV (23:34)
[2023-04-15 23:35] LABS: Basophils % 0.2 %; Eosinophils # 0.1 10^3/uL (0.0-0.8); Eosinophils % 0.7 %; Lymphocytes # 1.7 10^3/uL (0.8-4.8); Lymphocytes % 13.6 %; Mean Corpuscular HGB Conc 34.5 g/dL (30.0-36.0); Mean Corpuscular Hemoglobin 29.2 pg (28.0-34.0); Mean Corpuscular Volume 84.8 fl (81-99); Mean Platelet Volume 10.9 fL (7.4-10.4); Monocytes # 0.6 10^3/uL (0.2-0.9); Neutrophils # 9.89 10^3/uL (1.8-7.7); Neutrophils % 79.9 %; Nucleated Red Blood Cells % 0 %; Platelet Count 228 10^3/cmm (130-400); Red Blood Count 3.42 10^6/uL (4.1-5.3); Red Cell Distribution Width 14.9 % (12.1-15.1); White Blood Count 12.4 10^3/uL (4.0-10.0)
[2023-04-15 23:37] LABS: Alanine Aminotransferase 16 U/L (0-33); Albumin Level 3.2 g/dL (3.5-5.2); Alkaline Phosphatase 132 U/L (35-105); Anion Gap 17.7 (5-19); Aspartate Amino Transferase 20 U/L (0-32); Blood Urea Nitrogen 3 mg/dL (6-20); Calcium 8.7 mg/dL (8.5-10.5); Carbon Dioxide 24 mmol/L (22-29); Chloride 100 mmol/L (98-107); Globulin 2.7 g/dL (1.3-4.6); Glomerular Filtration Rate 82.6 mL/min (90-130); Glucose 94 mg/dL (65-115); Osmolality Calculated 284 mOsm/kg (285-295); Sodium 139 mmol/L (136-145); Total Bilirubin 0.3 mg/dL (0.15-1.2); Total Protein 5.9 g/dL (6.6-8.7)
[2023-04-15 23:38] LABS: Potassium 2.7 mmol/L (3.5-5.1)
[2023-04-16] VITALS (58 sets, daily range): BP systolic 133–182; BP diastolic 71–113; PULSE 70–121; RESP 16; TEMP 35.9–36.8
[2023-04-16] MEDS: labetalol 5 mg/mL SDV 20mL 40 MG IVP (00:07)
[2023-04-16] MEDS: promethazine 25 mg/mL SDV 1 mL 12.5 MG IM (00:45)
[2023-04-16] MEDS: NIFEdipine ER (24 hr) 30 mg Tablet PO ×3 (02:05→14:39)
[2023-04-16] MEDS: dextrose 5%-ns 0.45% + KCl 40 1,000 ML 50 MEQ IV ×2 (02:36→17:14)
[2023-04-16] MEDS: magnesium sulfate premix 20 GM/500 ML BAG IV ×3 (02:36→22:23)
[2023-04-16] MEDS: magnesium sulfate premix 4 GM/100 ML PREMIX IV (02:36)
--- NOTE | 2023-04-16 04:52 | PM.OBGYHP ---
Providers/Chief Complaint Admitting Physician: Reggie Rossi MD Primary TOOTH CUTTER CONTACT WHEEL: Nash Tang MD Primary Care Provider: Jovany Anderson MD Chief Complaint: Abdominal pain, vomiting HPI TOOTH CUTTER CONTACT WHEEL History of Present Illness 33 y.o.? A3 EDC? April 28, 2023 At 38 w 2 d With chronic gestational hypertension On labetolol 100 mg po bid Presents to L&D c/o vomiting x 2 weeks States has not been able to keep anything down Was given Zofran but not helping Vomiting has worsened, now vomiting ?nonstop? No headache, blurry vision, abdominal pain No bleeding, fluid leakage + active movements PMHx:chronic htn in Anxiety Depression Meds:labetolol 100 mg po bid Aspirin 81 mg po daily seroquel All:latex Ceclor Penicillins sulfa Present Details : 8 Para: 4 Medications/Allergies Home Medications Medication Instructions Recorded Confirmed Last Taken Type omega 2-tbo-vgz-fish oil 300 2 cap PO DAILY 03/03/22 04/09/23 3 Days Ago History mg-1,000 mg capsule (Fish Oil) ~03/15/23 acetaminophen 500 mg tablet 1,000 mg PO Q6H PRN Pain 09/10/22 04/09/23 03/14/23 07:00 History vitamin with calcium 1 tab PO DAILY 09/10/22 04/09/23 2 Days Ago History no.72-iron 27 mg-folic acid 1 mg ~03/16/23 tablet (M-Domenica Plus) aspirin 81 mg tablet,delayed 81 mg PO DAILY Chronic 10/05/22 04/09/23 03/16/23 22:00 Rx release hypertension in #90 tabs fluoxetine 40 mg capsule (Prozac) 80 mg PO DAILY #60 caps 03/11/23 04/09/23 1 Day Ago Rx ~03/17/23 quetiapine 100 mg tablet (Seroquel) 100 mg PO .HS #30 tabs 03/11/23 04/09/23 1 Day Ago Rx ~03/17/23 quetiapine 50 mg tablet (Seroquel) 50 mg PO .AM #30 tabs 03/11/23 04/09/23 1 Day Ago Rx ~03/17/23 labetalol 200 mg tablet 200 mg PO BID #60 tabs 04/02/23 04/09/23 Unknown Rx ondansetron 4 mg disintegrating 4 mg PO Q6H PRN Nausea And 04/05/23 04/09/23 Unknown Rx tablet Vomiting #10 tabs Allergies Allergy/AdvReac Type Severity Reaction Status Date / Time latex Allergy Mild burning Verified 04/09/23 13:43 cefaclor [From Ceclor] Allergy RASH Verified 04/09/23 13:43 Penicillins AdvReac RASH--Allergic Verified 04/09/23 13:43 to all cillins. Has not tried Keflex. Sulfa (Sulfonamide AdvReac TINGLING Verified 04/09/23 13:43 Antibiotics) IN ARMS PFSH TOOTH CUTTER CONTACT WHEEL PFSH: Medical History Anxiety and depression Has had symptoms on and off for years and is being managed by primary care provider. She has a referral to see behavioral health care but has not seen them as yet Hypertension Diagnosed in 2017 and is on medication managed by PMD. 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 Anderson [facility] Surgical History History of tonsillectomy and adenoidectomy (~1997) polyps removed Hx of knee surgery R knee x 2 2014 2015 Family History Mother Diabetes Hypercholesteremia Hypertension Father Diabetes Hypercholesteremia Hypertension Grandfather Diabetes Maternal and Paternal Hypercholesteremia Maternal and Paternal Hypertension Maternal and Paternal Stroke Maternal Heart disease maternal and paternal Grandmother Diabetes Maternal and Paternal Hypercholesteremia Maternal and Paternal Hypertension Maternal and Paternal Heart disease maternal and paternal Denies family history of Colon cancer Ovarian cancer Breast cancer Uterine cancer Thyroid condition Social History Substance/Drug Use: never History History History 8 Term 4 0 Miscarriages/Ectopic 3 Living Children 4 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 lbs;? 5?6? VS: BPs ? 155 / 113,? 160 / 105,? 187 / 90,? 170 / 92 Vomiting Almost unable to speak due to vomiting Lungs:clear Cor:RRR Abd:soft, nontender Cxper RN? ? 1 cm Ext:no edema External monitor:? heart tracing good variability,? + accelerations Data 04/15/23 23:05 04/15/23 23:05 A&P Assessment and plan (1) Supervision of other high-risk : 38 w 2 d (2) Preeclampsia: h/o chronic gestational hypertension now with persistently elevated BPs likely superimposed preeclampsia at 38 + weeks plan admit plan induction of labor plan MgSO4 if BPs continue to be elevated monitor urine output will give Procardia (3) Vomiting: vomiting, persistent possible chronic gastritis will give Reglan, Phenergan, and Zofran IV fluid Will check electrolytes Attestations Medical Necessity Statement*: patient at 38 w with preeclampsia, vomiting Coding Level of Care Code Acute Code for Chg Fwd Diagnoses Supervision of other high-risk O09.899 Preeclampsia O14.90 Vomiting R11.10 Time Spent (min) 60
[2023-04-16] MEDS: miSOPROStol 100 mcg tablet 25 MCG VAGINAL (05:17)
[2023-04-16] MEDS: metoclopramide 5 mg/mL SDV 2 mL 10 MG IVP (06:09)
--- NOTE | 2023-04-16 08:35 | PM.DELIVERY ---
Delivery Note: Date of delivery: April 16, 2023 Pre-delivery diagnoses: 38 w 2 d chronic hypertension with superimposed preeclampsia persistent vomiting labor induction Post-delivery diagnoses: same as above Procedure: labor induction vaginal delivery Op report anesthesia: None Delivering Physician: Reggie Rossi MD Estimated blood loss (mL): 300 Findings: vigorous Delivery: spontaneous vaginal delivery Post-Delivery Status: good History History History 8 Term 4 0 Miscarriages/Ectopic 3 Living Children 4 A&P Assessment and plan (1) Supervision of other high-risk : (2) Preeclampsia: (3) Vomiting: (4) Vaginal delivery: Coding Level of Care Code Acute Code for Chg Fwd Diagnoses Supervision of other high-risk O09.899 Preeclampsia O14.90 Vomiting R11.10 Vaginal delivery O80 Time Spent (min) 45
[2023-04-16] MEDS: miSOPROStol 200 mcg Tablet 800 MCG PR (09:28)
[2023-04-16] MEDS: acetaminophen 325 mg Tablet 650 MG PO (19:56)
--- NOTE | 2023-04-16 21:15 | PC.NURSE ---
This nurse was at bedside with pt. when pt stated baby, baby is coming Pt opened up legs and this nurse observed babies head . This nurse encouraged pt to breath as gloves were placed. Pt continued to push and baby was delivered by this nurse with pt on her left side @1911. Nuchal x1 was reduced by this nurse. This nurse stimulated baby. Sandra Espinoza was in room @ [address] Nickesron was in room @1914. Dr. Nickerson clamped and cut the cord and baby was given to Sandra Espinoza at warmer. Dr. Nickerson then delivered placenta @ 917.
[2023-04-16 22:21] LABS: Hematocrit 29.5 % (37.0-47.0); Hemoglobin 10.1 g/dL (11.5-15.3); Mean Corpuscular HGB Conc 34.2 g/dL (30.0-36.0); Mean Corpuscular Hemoglobin 28.8 pg (28.0-34.0); Mean Platelet Volume 10.8 fL (7.4-10.4); Platelet Count 285 10^3/cmm (130-400); Red Blood Count 3.51 10^6/uL (4.1-5.3); Red Cell Distribution Width 14.9 % (12.1-15.1); White Blood Count 18.9 10^3/uL (4.0-10.0)
[2023-04-17] VITALS (13 sets, daily range): BP systolic 134–156; BP diastolic 88–102; PULSE 86–108; TEMP 35.2–35.9; O2SAT 96–98
[2023-04-17] MEDS: acetaminophen 325 mg Tablet 650 MG PO ×4 (01:37→20:03)
[2023-04-17] MEDS: hyDROXYzine 25 mg Capsule 50 MG PO (01:38)
[2023-04-17] MEDS: NIFEdipine ER (24 hr) 30 mg Tablet PO (03:50)
[2023-04-17] MEDS: dextrose 5%-ns 0.45% + KCl 40 1,000 ML 50 MEQ IV (08:04)
[2023-04-17] MEDS: prenatal vitamin Capsule 1 CAP PO (08:51)
[2023-04-17] MEDS: docusate sodium 100 mg Capsule PO ×2 (08:51→20:03)
--- NOTE | 2023-04-17 09:35 | PC.NURSE ---
Addendum entered by Krista Butler RN 04/17/23 10:05: [facility] at bedside with this nurse. Both parents included in discussion. [facility] investigator utility bill complaints states that plan of care is to do a home inspection, otherwise no concerns at this time. Original Note: [facility] at the bedside with this nurse. Both parents included in discussion.
--- NOTE | 2023-04-17 17:05 | PM.OBGYPN ---
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 BP?? 133 / 86 Awake, alert, appropriate Comfortable Lungs:? clear Cor:? RRR Abd:? soft, nontender Ext:? normal Urinary Catheter Management: Latex Free: Cath Placed During This Visit: yes, but has since been removed by the nurse Reason for Continuing Indwelling Catheter: Decision to DC Catheter Urinary Catheter Date of Insertion: 04/16/23 Urinary Catheter Time of Insertion: 03:54 Date Urinary Catheter Removed: 04/17/23 Time Urinary Catheter Discontinued: 09:14 Data 04/16/23 21:25 04/15/23 23:05 A&P Assessment and plan (1) Vaginal delivery: PPD #1 s/p vaginal delivery s/p labor induction for chronic hypertension with superimposed preeclampsia at 38 weeks patient doing well BPs much improved MgSO4 was discontinued this morning 24 hours after delivery Plan continue Procardia 30 mg XL once daily for BP control Continue care Anticipate discharge tomorrow (2) Preeclampsia: (3) Chronic hypertension in : Attestations Medical Necessity Statement*: patient s/p induced vaginal delivery for preeclampsia at 38 weeks Coding Level of Care Code Acute Code for Chg Fwd Diagnoses Vaginal delivery O80 Preeclampsia O14.90 Chronic hypertension in O10.919 Time Spent (min) 30
[2023-04-18 05:07] VITALS: BP 144/96; PULSE 80
[2023-04-18] MEDS: docusate sodium 100 mg Capsule PO (09:47)
[2023-04-18] MEDS: ibuprofen 800 mg tablet PO (09:47)
[2023-04-18] MEDS: prenatal vitamin Capsule 1 CAP PO (09:47)
[2023-04-18] MEDS: NIFEdipine ER (24 hr) 30 mg Tablet PO (09:49)
--- NOTE | 2023-04-18 10:44 | PM.OBGYPN ---
STILL OPERATOR BATCH OR CONTINUOUS Subjective Subjective: Interval history: No c/o No pain, bleeding, nausea, vomiting Eating, voiding, ambulating well Labor: Station: -3 Amniotic Membrane Status: Ruptured Monitor Mode: External Contraction Pattern: Irregular Vitals/I&O/Wt Last Vital Signs Temp 96.6 F L 04/17/23 22:31 Pulse 80 04/18/23 05:07 Resp 16 04/16/23 14:27 BP 144/96 04/18/23 05:07 Pulse Ox 98 04/17/23 16:04 O2 Del Method Room Air 04/16/23 14:27 Physical Exam Narrative: Afebrile, BP 133 / 86 Awake, alert, appropriate Comfortable Lungs: clear Cor: RRR Abd: soft, nontender Ext: normal Urinary Catheter Management: Latex Free: Cath Placed During This Visit: yes, but has since been removed by the nurse Reason for Continuing Indwelling Catheter: Decision to DC Catheter Urinary Catheter Date of Insertion: 04/16/23 Urinary Catheter Time of Insertion: 03:54 Date Urinary Catheter Removed: 04/17/23 Time Urinary Catheter Discontinued: 09:14 Data 04/16/23 21:25 04/15/23 23:05 A&P Assessment and plan (1) Vaginal delivery: PPD #2 s/p vaginal delivery s/p labor induction for chronic hypertension with superimposed preeclampsia at 38 weeks patient doing well BPs stable Plan discharge home Plan continue Procardia 30 mg XL once daily for BP control f/u in two weeks for BP check (2) Preeclampsia: resolved Attestations Medical Necessity Statement*: patient s/p induced vaginal delivery for preeclampsia at term, plan discharge home today Coding Level of Care Code Acute Code for Chg Fwd Diagnoses Vaginal delivery O80 Preeclampsia O14.90 Time Spent (min) 15
--- NOTE | 2023-04-18 10:46 | PM.OBGYDC ---
Discharge Providers CANT GANG SAWYER Date of Admission: 04/15/23 22:02 Date of Discharge: 04/18/23 Attending Provider at Admission: Reggie Rossi MD Attending Provider at Discharge: Reggie Rossi MD Primary Care Provider: Jovany Anderson MD Diagnoses at Discharge Discharge Diagnosis (1) Vaginal delivery: Details from hospital stay: patient underwent induced vaginal delivery due to preeclampsia at term did well Status: Acute (2) Preeclampsia: Details from hospital stay: required MgSO4 and procardia did well Status: Acute Reason for Visit Reason for Visit: Abdominal pain, vomiting Brief History: resolved Information Peripartum Data: Infant Delivery Method: Vaginal Physical Exam Const: COMMON NORMALS: no acute distress, average body habitus, patient oriented x3, healthy appearing and alert HENMT: COMMON NORMALS: hearing grossly normal bilaterally Resp: COMMON NORMALS: normal respiratory effort, No retractions and clear to auscultation bilaterally AUSCULTATION: clear to auscultation bilaterally Cardio: COMMON NORMALS: regular rate and regular rhythm RATE: regular rate RHYTHM: regular rhythm GI: COMMON NORMALS: Normal to inspection, nondistended, normoactive bowel sounds present, Soft to palpation and non-tender PALPATION: Yes Soft to palpation Extremity: COMMON NORMALS: normal to inspection and no calf tenderness Neuro: COMMON NORMALS: patient oriented x3 SENSORIUM/ORIENTATION: Yes alert Urinary Catheter Management: Latex Free: Cath Placed During This Visit: yes, but has since been removed by the nurse Reason for Continuing Indwelling Catheter: Decision to DC Catheter Urinary Catheter Date of Insertion: 04/16/23 Urinary Catheter Time of Insertion: 03:54 Date Urinary Catheter Removed: 04/17/23 Time Urinary Catheter Discontinued: 09:14 History History History 8 Term 4 0 Miscarriages/Ectopic 3 Living Children 4 Discharge Data Studies Completed and Pending Laboratory Results WBC 18.9 10^3/uL (4.0-10.0) H 04/16/23 21:25 RBC 3.51 10^6/uL (4.1-5.3) L 04/16/23 21:25 Hgb 10.1 g/dL (11.5-15.3) L 04/16/23 21:25 Hct 29.5 % (37.0-47.0) L 04/16/23 21:25 MCV 84.0 fl (81-99) 04/16/23 21:25 MCH 28.8 pg (28.0-34.0) 04/16/23 21: MCHC 34.2 g/dL (30.0-36.0) 04/16/23 21:25 RDW 14.9 % (12.1-15.1) 04/16/23 21:25 Plt Count 285 10^3/cmm (130-400) 04/16/23 21:25 MPV 10.8 fL (7.4-10.4) H 04/16/23 21:25 Neut % (Auto) 79.9 % 04/15/23 23:05 Lymph % (Auto) 13.6 % 04/15/23 23:05 Elliott % (Auto) 5.0 % 04/15/23 23:05 Eos % (Auto) 0.7 % 04/15/23 23:05 Baso % (Auto) 0.2 % 04/15/23 23:05 Neut # (Auto) 9.89 10^3/uL (1.8-7.7) H 04/15/23 23:05 Lymph # (Auto) 1.7 10^3/uL (0.8-4.8) 04/15/23 23:05 Elliott # (Auto) 0.6 10^3/uL (0.2-0.9) 04/15/23 23:05 Eos # (Auto) 0.1 10^3/uL (0.0-0.8) 04/15/23 23:05 Baso # (Auto) 0.0 10^3/uL (0.0-0.1) 04/15/23 23:05 Nucleated RBC % (auto) 0 % 04/15/23 23:05 Nucleated RBCs # 0.0 /100WBC 04/15/23 23:05 Sodium 139 mmol/L (136-145) 04/15/23 23:05 Potassium 2.7 mmol/L (3.5-5.1) L* 04/15/23 23:05 Chloride 100 mmol/L (98-107) 04/15/23 23:05 Carbon Dioxide 24 mmol/L (22-29) 04/15/23 23:05 Anion Gap 17.7 (5-19) 04/15/23 23:05 BUN 3 mg/dL (6-20) L 04/15/23 23:05 Creatinine 0.8 mg/dL (0.5-0.9) 04/15/23 23:05 GFR Calculation 82.6 mL/min (90-130) L 04/15/23 23:05 Glucose 94 mg/dL (65-115) 04/15/23 23:05 Calculated Osmolality 284 mOsm/kg (285-295) L 04/15/23 23:05 Calcium 8.7 mg/dL (8.5-10.5) 04/15/23 23:05 Total Bilirubin 0.3 mg/dL (0.15-1.2) 04/15/23 23:05 AST 20 U/L (0-32) 04/15/23 23:05 ALT 16 U/L (0-33) 04/15/23 23:05 Alkaline Phosphatase 132 U/L (35-105) H 04/15/23 23:05 Total Protein 5.9 g/dL (6.6-8.7) L 04/15/23 23:05 Albumin 3.2 g/dL (3.5-5.2) L 04/15/23 23:05 Globulin 2.7 g/dL (1.3-4.6) 04/15/23 23:05 Urine Color Yellow (Yellow) 04/15/23 22:00 Urine Appearance Sl hazy (CLEAR) A 04/15/23 22:00 Urine pH 7 (5-7) 04/15/23 22:00 Ur Specific [place] 1.010 (1.005-1.030) 04/15/23 22:00 Urine Protein Trace (Negative) 04/15/23 22:00 Urine Glucose (UA) Norm (Normal) 04/15/23 22:00 Urine Ketones 3+ (Negative) H 04/15/23 22:00 Urine Blood Neg (Negative) 04/15/23 22:00 Urine Nitrate Negative (Negative) 04/15/23 22:00 Urine Bilirubin Neg (Negative) 04/15/23 22:00 Urine Urobilinogen 4 mg/dL (Negative) H 04/15/23 22:00 Ur Leukocyte Esterase 2+ (Negative) H 04/15/23 22:00 Urine RBC 0-4 /hpf (0-2) H 04/15/23 22:00 Urine WBC 5-10 /hpf (0-5) H 04/15/23 22:00 Ur Squamous Epith Cells 15-25 /hpf (0-5) H 04/15/23 22:00 Amorphous Sediment 1+ /hpf 04/15/23 22:00 Urine Bacteria 1+ /hpf (NONE) H 04/15/23 22:00 Urine Mucus 3+ /hpf 04/15/23 22:00 Urine Opiates Screen Negative ng/mL (Negative) 04/15/23 22:35 Ur Barbiturates Screen Negative ng/mL (Negative) 04/15/23 22:35 Ur Phencyclidine Scrn Negative ng/mL (Negative) 04/15/23 22:35 Ur Amphetamines Screen Negative ng/mL (Negative) 04/15/23 22:35 U Benzodiazepines Scrn Positive ng/mL (Negative) H 04/15/23 22:35 Urine Cocaine Screen Negative ng/mL (Negative) 04/15/23 22:35 U Marijuana (THC) Screen Positive ng/mL (Negative) H 04/15/23 22:35 Procedures Performed labor induction vaginal delivery Vitals Last Vital Signs Temp 96.6 F L 04/17/23 22:31 Pulse 80 04/18/23 05:07 Resp 16 04/16/23 14:27 BP 144/96 04/18/23 05:07 Pulse Ox 98 04/17/23 16:04 O2 Del Method Room Air 04/16/23 14:27 Discharge Plan Discharge Patient Disposition: Home Condition: Stable Prescriptions: New nifedipine [Procardia XL] 30 mg tablet extended release 24hr 30 mg PO DAILY Qty: 30 0RF Continued omega 7-fhk-kan-fish oil [Fish Oil] 300-1,000 mg capsule 2 cap PO DAILY fluoxetine [Prozac] 40 mg capsule 80 mg PO DAILY Qty: 60 2RF quetiapine [Seroquel] 100 mg tablet 100 mg PO .HS Qty: 30 2RF quetiapine [Seroquel] 50 mg tablet 50 mg PO .AM Qty: 30 2RF ondansetron 4 mg tablet,disintegrating 4 mg PO Q6H PRN (Reason: Nausea And Vomiting) Qty: 10 0RF acetaminophen [Tylenol Ex Str Rapid Release] 500 mg Tablet 1,000 mg PO Q6H PRN (Reason: Pain) M- Plus 27 mg iron- 1 mg tablet 1 tab PO DAILY Discontinued aspirin 81 mg tablet,delayed release (DR/EC) 81 mg PO DAILY Qty: 90 3RF labetalol 200 mg tablet 200 mg PO BID Qty: 60 3RF Discharge Orders: Discharge Order (Routine); Ordered 04/18/23 Ordered By: Reggie Rossi Referrals: Nash Tang MD [Physician] - 05/28/23 1:30 pm Silvia Romero APN, WHNP [Nurse Practitioner] - 04/30/23 1:45 pm Discharge Diet: Usual diet Discharge Activity: Increase activity as tolerated Patient Instructions: Opioid Safety Activity Restrictions/Additional Instructions: Return to see Dr. Tang in two weeks for BP check Discharge Attestations CANT GANG SAWYER Time Spent in Discharge Care*: less than 30 min Coding Level of Care Code Acute Code for Chg Fwd Diagnoses Vaginal delivery O80 Preeclampsia O14.90 Time Spent (min) 20
[2023-04-18 13:18] VITALS: BP 171/98; PULSE 75
[2023-04-18 13:26] VITALS: BP 160/97; PULSE 76
--- NOTE | 2023-04-18 14:08 | PC.NURSE ---
[address] Rossi and reported BP's of 171/98 and 160/97. Dr. Rossi orders for pt to go ahead and be discharged.
[2023-04-18 14:09] VITALS: BP 160/97; PULSE 76; RESP 16; TEMP 37
== END 2023-04-18 13:30 | disposition home or self-care (01) | DRG 807 ==
LOC: OPOB 22:04 → OBGYN 22:04
PROVIDERS: Absent Provider Obstetrics & Gynecology; Admitting Provider Obstetrics & Gynecology; PCP Family Medicine; Visit Provider Obstetrics & Gynecology
DX: O11.4 Pre-existing hypertension with pre-eclampsia, complicating childbirth (principal); Z37.0 Single live birth; O10.92 Unspecified pre-existing hypertension complicating childbirth; Z3A.38 38 weeks gestation of pregnancy
CPT/HCPCS: 36415; 51702; 59025; 59409; 80053; 80306; 81001; 83986; 85025; 85027; 96372; 96374; 96375; 99211; J2550; J2765; J3475; J3490; J7040; J7121

== ENCOUNTER 2023-04-23 20:29 | Emergency (ER) | payer BC, MEDICAID, SELFPAY ==
[2023-04-23 20:50] VITALS: BP 165/114; PULSE 117; RESP 16; TEMP 36.6; O2SAT 96; BMI 37.0
[2023-04-23] MEDS: labetalol 5 mg/mL SDV 20mL 10 MG IVP (21:43)
[2023-04-23 21:46] VITALS: BP 163/111; PULSE 90; RESP 16; O2SAT 99
[2023-04-23 21:46] LABS: Basophils # 0.1 10^3/uL (0.0-0.1); Basophils % 0.5 %; Eosinophils # 0.4 10^3/uL (0.0-0.8); Eosinophils % 2.9 %; Hematocrit 26.4 % (37.0-47.0); Hemoglobin 8.9 g/dL (11.5-15.3); Lymphocytes # 3.6 10^3/uL (0.8-4.8); Lymphocytes % 25.5 %; Mean Corpuscular HGB Conc 33.7 g/dL (30.0-36.0); Mean Corpuscular Hemoglobin 28.8 pg (28.0-34.0); Mean Corpuscular Volume 85.4 fl (81-99); Mean Platelet Volume 9.6 fL (7.4-10.4); Monocytes # 0.8 10^3/uL (0.2-0.9); Monocytes % 5.3 %; Neutrophils # 9.27 10^3/uL (1.8-7.7); Neutrophils % 65.1 %; Nucleated Red Blood Cells % 0 %; Platelet Count 380 10^3/cmm (130-400); Red Blood Count 3.09 10^6/uL (4.1-5.3); Red Cell Distribution Width 13.9 % (12.1-15.1); White Blood Count 14.3 10^3/uL (4.0-10.0)
--- NOTE | 2023-04-23 21:53 | ED_ITS ---
HPI - Recheck/Abnormal Lab/Rx General: Chief Complaint: Recheck/Abnormal Lab/Rx Stated Complaint: high bp Time Seen by Provider: 04/23/23 20:43 Source: patient Mode of arrival: ambulatory Limitations: no limitations History of Present Illness: 33-year-old female is a history of hypertension she just gave a week ago she states she is hypertensive through the . She states she was induce d due to her hypertension she states that they did switch her from metoprolol to Procardia she states she is continue to have high blood pressure blood pressure here is 163/111. She denies any leg swelling denies any headache or chest pain. Review of Systems Const: Denies: fever(s), chills, body aches or change in appetite ENMT: Denies: throat pain or dental pain Card: Denies: chest pain Resp: Denies: dyspnea GI: Denies: abdominal pain, nausea, vomiting or diarrhea Musc: Denies: neck pain or back pain Skin/Breast: Denies: rash Neuro: Denies: headache(s) PFSH ED PFSH: Medical History Anxiety and depression Has had symptoms on and off for years and is being managed by primary care provider. She has a referral to see behavioral health care but has not seen them as yet Hypertension Diagnosed in 2017 and is on medication managed by PMD. Does not see a cement mixer No pertinent past medical history Denies diabetes, asthma, seizures, DVT/PE PCP: Dr. [facility] Surgical History History of tonsillectomy and adenoidectomy (~1997) polyps removed Hx of knee surgery R knee x 2 2014 2015 Family History Mother Diabetes Hypercholesteremia Hypertension Father Diabetes Hypercholesteremia Hypertension Grandfather Diabetes Maternal and Paternal Hypercholesteremia Maternal and Paternal Hypertension Maternal and Paternal Stroke Maternal Heart disease maternal and paternal Grandmother Diabetes Maternal and Paternal Hypercholesteremia Maternal and Paternal Hypertension Maternal and Paternal Heart disease maternal and paternal Denies family history of Colon cancer Ovarian cancer Breast cancer Uterine cancer Thyroid condition Social History Substance/Drug Use: never Physical Exam Const: COMMON NORMALS: no acute distress, patient oriented x3 and healthy appearing HENMT: COMMON NORMALS: normocephalic and atraumatic HEAD & SCALP: normocephalic and atraumatic Neck/C-Spine: COMMON NORMALS: full ROM and supple Chest: COMMONS NORMALS: normal inspection of the chest and normal palpation of entire chest wall Resp: COMMON NORMALS: normal respiratory effort, No retractions, No use of accessory muscles and clear to auscultation bilaterally AUSCULTATION: clear to auscultation bilaterally Cardio: COMMON NORMALS: regular rate, regular rhythm and No murmurs present (Cardio) RATE: regular rate RHYTHM: regular rhythm GI: COMMON NORMALS: Normal to inspection, nondistended, normoactive bowel sounds present, Soft to palpation, non-tender and no masses PALPATION: Yes Soft to palpation Extremity: COMMON NORMALS: normal to inspection and full ROM Neuro: COMMON NORMALS: patient oriented x3, moves all extremities and no focal motor deficits Psych: COMMON NORMALS: mental status grossly normal, Normal thought process present and cooperative THOUGHT PROCESS: Normal thought process present Skin: COMMON NORMALS: no rashes or lesions noted and no wounds GENERAL SKIN EXAM: no rashes or lesions noted Course Vital Signs: Vital signs: Vital Signs Temperature 97.9 F 04/23/23 20:50 Pulse Rate 88 04/23/23 22:26 Respiratory Rate 18 04/23/23 22:26 Blood Pressure 142/101 04/23/23 22:26 Pulse Oximetry 99 04/23/23 22:26 Oxygen Delivery Me thod Room Air 04/23/23 21:46 MDM - Recheck/Abnormal Lab/Rx Medical Decision Making Patient presents with hypertension she is no protein in her urine no swelling in her legs we will increase her Procardia to 60 mg a day she is to follow-up with her PCP or OB and return if worsening she understands agrees plan. Medical Records I reviewed the patient's medical records. Lab Data I reviewed the patient's lab results. 04/23/23 21:25 04/23/23 21:25 Laboratory Results WBC 14.3 10^3/uL (4.0-10.0) H 04/23/23 21:25 RBC 3.09 10^6/uL (4.1-5.3) L 04/23/23 21: Hgb 8.9 g/dL (11.5-15.3) L 04/23/23 21: Hct 26.4 % (37.0-47.0) L 04/23/23 21: MCV 85.4 fl (81-99) 04/23/23 21: MCH 28.8 pg (28.0-34.0) 04/23/23: MCHC 33.7 g/dL (30.0-36.0) 04/23/23: RDW 13.9 % (12.1-15.1) 04/23/23: Plt Count 380 10^3/cmm (130-400) 04/23/23: MPV 9.6 fL (7.4-10.4) 04/23/23: Neut % (Auto) 65.1 % 04/23/23: Lymph % (Auto) 25.5 % 04/23/23: Glades % (Auto) 5.3 % 04/23/23 21: Eos % (Auto) 2.9 % 04/23/23: Baso % (Auto) 0.5 % 04/23/23: Neut # (Auto) 9.27 10^3/uL (1.8-7.7) H 04/23/23: Lymph # (Auto) 3.6 10^3/uL (0.8-4.8) 04/23/23: Glades # (Auto) 0.8 10^3/uL (0.2-0.9) 04/23/23: Eos # (Auto) 0.4 10^3/uL (0.0-0.8) 04/23/23: Baso # (Auto) 0.1 10^3/uL (0.0-0.1) 04/23/23: Nucleated RBC % (auto) 0 % 04/23/23: Nucleated RBCs # 0.0 /100WBC 04/23/23 21: Sodium 139 mmol/L (136-145) 04/23/23 21: Potassium 3.4 mmol/L (3.5-5.1) L 08/04/23 21:25 Chloride 100 mmol/L (98-107) 04/23/23 21:25 Carbon Dioxide 26 mmol/L (22-29) 04/23/23 21:25 Anion Gap 16.4 (5-19) 04/23/23 21:25 BUN 9 mg/dL (6-20) 04/23/23 21:25 Creatinine 0.8 mg/dL (0.5-0.9) 04/23/23 21:25 GFR Calculation 82.6 mL/min (90-130) L 04/23/23 21:25 Glucose 91 mg/dL (65-115) 04/23/23 21:25 Calculated Osmolality 286 mOsm/kg (285-295) 04/23/23 21:25 Calcium 9.4 mg/dL (8.5-10.5) 04/23/23 21:25 Total Bilirubin 0.2 mg/dL (0.15-1.2) 04/23/23 21:25 AST 33 U/L (0-32) H 04/23/23 21:25 ALT 36 U/L (0-33) H 04/23/23 21:25 Alkaline Phosphatase 95 U/L (35-105) 04/23/23 21:25 Lactate Dehydrogenase 236 U/L (135-214) H 04/23/23 21:25 Total Protein 6.2 g/dL (6.6-8.7) L 04/23/23 21:25 Albumin 3.5 g/dL (3.5-5.2) 04/23/23 21:25 Globulin 2.7 g/dL (1.3-4.6) 04/23/23 21:25 Urine Color Yellow (Yellow) 04/23/23 22:38 Urine Appearance Cloudy (CLEAR) A 04/23/23 22:38 Urine pH 5 (5-7) 04/23/23 22:38 Ur Specific [place]rell 1.020 (1.005-1.030) 04/23/23 22:38 Urine Protein Trace (Negative) 04/23/23 22:38 Urine Glucose (UA) Norm (Normal) 04/23/23 22:38 Urine Ketones Negative (Negative) 04/23/23 22:38 Urine Blood 3+ (Negative) H 04/23/23 22:38 Urine Nitrate Negative (Negative) 04/23/23 22:38 Urine Bilirubin Neg (Negative) 04/23/23 22:38 Urine Urobilinogen Norm mg/dL (Negative) 04/23/23 22:38 Ur Leukocyte Esterase 2+ (Negative) H 04/23/23 22:38 Urine RBC >100 /hpf (0-2) H 04/23/23 22:38 Urine WBC >100 /hpf (0-5) H 04/23/23 22:38 Ur Squamous Epith Cells 0-4 /hpf (0-5) H 04/23/23 22:38 Amorphous Sediment Not Reportable 04/23/23 22:38 Urine Bacteria 1+ /hpf (NONE) H 04/23/23 22:38 Urine Mucus Trace /hpf 04/23/23 22:38 Discharge Plan Discharge Patient Disposition: Home Clinical Impression: Hypertension Condition: Stable Prescriptions: New Procardia XL 60 mg tablet extended release 24hr 60 mg PO DAILY Qty: 30 0RF Discontinued nifedipine [Procardia XL] 30 mg tablet extended release 24hr 30 mg PO DAILY Qty: 30 0RF No Action omega 9-ymp-skr-fish oil [Fish Oil] 300-1,000 mg capsule 2 cap PO DAILY fluoxetine [Prozac] 40 mg capsule 80 mg PO DAILY Qty: 60 2RF quetiapine [Seroquel] 100 mg tablet 100 mg PO .HS Qty: 30 2RF quetiapine [Seroquel] 50 mg tablet 50 mg PO .AM Qty: 30 2RF ondansetron 4 mg tablet,disintegrating 4 mg PO Q6H PRN (Reason: Nausea And Vomiting) Qty: 10 0RF acetaminophen 500 mg Tablet 1,000 mg PO Q6H PRN (Reason: Pain) M-Domenica Plus 27 mg iron- 1 mg tablet 1 tab PO DAILY Discharge Orders: Discharge ED (Routine); Ordered 04/23/23 Ordered By: Isreal Terrell Referrals: Jovany Anderson MD [Primary Care Provider] - 1-3 days Discharge Diet: Advance as tolerated Discharge Activity: Resume usual activity Patient Instructions: Hypertension (ED) Coding Level of Care Code ED Mattress Stripper for Tommie Gipson
[2023-04-23 22:00] LABS: Alanine Aminotransferase 36 U/L (0-33); Albumin Level 3.5 g/dL (3.5-5.2); Alkaline Phosphatase 95 U/L (35-105); Anion Gap 16.4 (5-19); Aspartate Amino Transferase 33 U/L (0-32); Blood Urea Nitrogen 9 mg/dL (6-20); Calcium 9.4 mg/dL (8.5-10.5); Carbon Dioxide 26 mmol/L (22-29); Chloride 100 mmol/L (98-107); Globulin 2.7 g/dL (1.3-4.6); Glomerular Filtration Rate 82.6 mL/min (90-130); Glucose 91 mg/dL (65-115); Lactate Dehydrogenase 236 U/L (135-214); Osmolality Calculated 286 mOsm/kg (285-295); Potassium 3.4 mmol/L (3.5-5.1); Sodium 139 mmol/L (136-145); Total Bilirubin 0.2 mg/dL (0.15-1.2); Total Protein 6.2 g/dL (6.6-8.7)
[2023-04-23 22:26] VITALS: BP 142/101; PULSE 88; RESP 18; O2SAT 99
[2023-04-23 23:01] LABS: Blood Urine 3+ (Negative); Glucose Urine UA Norm (Normal); Ketones Urine Negative (Negative); Protein Urine Trace (Negative); Urine Appearance Cloudy (CLEAR); Urine Color Yellow (Yellow); pH Urine 5 (5-7)
[2023-04-23 23:02] LABS: Add Urine Microscopic? YES; Bilirubin Urine Neg (Negative); Leukocyte Esterase Urine 2+ (Negative); Nitrate Urine Negative (Negative); Urobilinogen Urine Norm (Negative)
[2023-04-23 23:04] LABS: RBC Urine >100 /hpf (0-2); WBC Urine >100 /hpf (0-5)
[2023-04-23 23:05] LABS: Bacteria Urine 1+ /hpf; Mucus Urine TRACE /hpf; Squamous Epithelial Cell Urine 0-4 /hpf (0-5)
[2023-04-23] MEDS: metoprolol tartrate 25 mg Tablet PO (23:05)
[2023-04-23 23:06] LABS: Add Urine Culture? Yes
[2023-04-23 23:33] VITALS: BP 169/113; PULSE 99; RESP 16; O2SAT 100
== END 2023-04-23 23:42 | disposition home or self-care (01) ==
PROVIDERS: Emergency Provider Emergency Medicine; PCP Family Medicine
DX: I10 Essential (primary) hypertension (principal)
CPT/HCPCS: 80053; 81001; 83615; 85025; 87086; 96374; 99284; J3490

== ENCOUNTER → 2023-06-21 11:50 | Outpatient (BNVA) | payer BC, SELFPAY | PROVIDERS: PCP Family Medicine; Visit Provider Psychiatry & Neurology Psychiatry | DX: F60.3 Borderline personality disorder (principal); F31.81 Bipolar II disorder; F41.1 Generalized anxiety disorder; F33.3 Major depressive disorder, recurrent, severe with psychotic symptoms | CPT/HCPCS: 80053; 80061; 83036; 84443; 85025 ==

== ENCOUNTER → 2024-04-28 09:02 | Outpatient (BNVA) | payer BC, SELFPAY | PROVIDERS: PCP Family Medicine; Visit Provider Obstetrics & Gynecology | DX: Z39.2 Encounter for routine postpartum follow-up (principal) | CPT/HCPCS: 84702 ==

== ENCOUNTER → 2024-06-07 11:26 | Outpatient (BNVA) | payer BC, SELFPAY | PROVIDERS: PCP Family Medicine; Visit Provider Nurse Practitioner Women's Health | DX: Z32.01 Encounter for pregnancy test, result positive (principal) | CPT/HCPCS: 84702; 85025 ==

== ENCOUNTER 2024-06-09 14:17 | Outpatient (CLI) | payer BC, SELFPAY ==
[2024-06-09 14:51] LABS: HCG Quantitative 9.63 mIU/mL
== END 2024-06-09 14:18 | disposition home or self-care (01) ==
LOC: LAB 14:17
PROVIDERS: PCP Family Medicine; Visit Provider Nurse Practitioner Women's Health
DX: Z78.9 Other specified health status (principal)
CPT/HCPCS: 36415; 84702

== ENCOUNTER 2024-08-22 10:56 | Outpatient (CLI) | payer BC, MEDICAID, SELFPAY ==
--- NOTE | 2024-08-22 11:04 | XR_ITS ---
WS: [id number] XR ribs RT 2V* [id number] REASON FOR EXAM: RUQ ABDOMINAL PAIN FINDINGS: No right rib fracture or focal right rib lesion. Underlying pleura and lungs are unremarkable. XR/XR ribs RT 2V* [id number] IMPRESSION: No acute abnormality.
== END 2024-08-22 10:57 | disposition home or self-care (01) ==
PROVIDERS: PCP Family Medicine; Visit Provider Family Medicine
DX: R10.11 Right upper quadrant pain (principal)
CPT/HCPCS: 71100

== ENCOUNTER 2025-03-15 10:33 | Emergency (ER) | payer BC, MEDICAID, SELFPAY ==
[2025-03-15 10:35] VITALS: BP 131/88; PULSE 79; TEMP 36.4; O2SAT 100; BMI 38.1
--- NOTE | 2025-03-15 11:05 | ECG_ITS ---
[facility]15 Pat Name: Jolynn Merlos Department: Room: Gender: Female It Infrastructure Consultant: : 1990 Requested By: Kathy Melnedez Order Number: [id number] Reading MD: Measurements Intervals [place] Rate: 80 P: 11 TN: 119 QRS: 39 QRSD: 105 T: 32 QT: 392 QTc: 453 Interpretive Statements SINUS RHYTHM WITH SINUS ARRHYTHMIA WITH SHORT TN INTERVAL INTERPRETATION BASED ON A DEFAULT AGE OF 40 YEARS No previous ECG available for comparison [email or web address]
[2025-03-15 11:07] VITALS: BP 145/91; PULSE 83; RESP 18; O2SAT 98
--- NOTE | 2025-03-15 11:11 | W.ED.CHESTPA ---
HPI - Chest Pain General: Chief Complaint: Chest Pain Stated Complaint: cp sob Time Seen by Provider: 03/15/25 11:04 History of Present Illness: 35 F who presents to the ED with complaints of intermittent chest pain that has been ongoing for approximately two weeks, with worsening over the past few days. The patient was seen by their PCP, Dr. Singleton, last Wednesday for chest pain and was prescribed nitroglycerin. The patient reports taking nitroglycerin last night which provided some relief of the chest pain but caused warmth and lowered their blood pressure (patient reports diastolic decreased from 90s to 70s, and systolic remained in the 120s). The patient describes a sensation of 'fluttering' in the chest that comes and goes, associated with nausea. The patient denies heartburn specifically but describes the sensation as possibly indigestion-like. Additionally, the patient was seen yesterday for a migraine and received Toradol, which reportedly caused a vasovagal response. The patient has been wearing sunglasses due to photosensitivity from the migraine. The patient reports trying to stay hydrated and resting. The patient's business process representative notes that the patient has been in 'panic mode' and acting differently since receiving the Toradol. The patient has attempted to follow up with a tailer out as referred by their PCP but has been unsuccessful in establishing contact. Related Data Home Medications ?Medication ?Instructions ?Recorded ?Confirmed lisinopril 20 1 tab PO BID 08/27/23 03/15/25 mg-hydrochlorothiazide 12.5 mg tablet fenofibrate nanocrystallized 145 1,458 mg PO DAILY 03/15/25 03/15/25 mg tablet naproxen 500 mg tablet See Rx Instructions .Route .COMPLEX 03/15/25 03/15/25 nitroglycerin 0.4 mg sublingual See Rx Instructions .Route .COMPLEX 03/15/25 03/15/25 tablet quetiapine 25 mg tablet 25 mg PO BID 03/15/25 03/15/25 rizatriptan 10 mg disintegrating See Rx Instructions .Route .COMPLEX 03/15/25 03/15/25 tablet (Maxalt-PROPERTY MANAGEMENT INTERN) Previous Rx's ?Medication ?Instructions ?Recorded bupropion HCl 100 mg tablet,12 hr 100 mg PO QAM #30 tabs 07/25/24 sustained-release Allergies Allergy/AdvReac Type Severity Reaction Status Date / Time latex Allergy Mild burning Verified 03/15/25 10:44 cefaclor (From Ceclor) Allergy RASH Verified 03/15/25 10:44 Penicillins AdvReac RASH--Allergic Verified 03/15/25 10:44 to all cillins. Has not tried Keflex. Sulfa (Sulfonamide AdvReac TINGLING Verified 03/15/25 10:44 Antibiotics) IN ARMS [facility] ED PFSH: Medical History Anxiety and depression Has had symptoms on and off for years and is being managed by primary care provider. She has a referral to see behavioral health care but has not seen them as yet Hypertension Diagnosed in 2017 and is on medication managed by PMD. Does not see a tailer out No pertinent past medical history Denies diabetes, asthma, seizures, DVT/PE PCP: Dr. [facility] Surgical History History of tonsillectomy and adenoidectomy (~1997) polyps removed Hx of knee surgery R knee x 2 2014 2015 Family History Mother Diabetes Hypercholesteremia Hypertension Father Diabetes Hypercholesteremia Hypertension Grandfather Diabetes Maternal and Paternal Hypercholesteremia Maternal and Paternal Hypertension Maternal and Paternal Stroke Maternal Heart disease maternal and paternal Grandmother Diabetes Maternal and Paternal Hypercholesteremia Maternal and Paternal Hypertension Maternal and Paternal Heart disease maternal and paternal Denies family history of Colon cancer Ovarian cancer Breast cancer Uterine cancer Thyroid condition Social History Substance/Drug Use: never Physical Exam Const: COMMON NORMALS: no acute distress, patient oriented x3 and alert GENERAL APPEARANCE: cooperative ORIENTATION/CONSCIOUSNESS: Yes awake, Yes oriented to person, Yes oriented to place and Yes oriented to time HENMT: COMMON NORMALS: normocephalic, atraumatic, external ears normal, Normal external nose present and moist oral mucous membranes HEAD & SCALP: normal to inspection, normocephalic and atraumatic NOSE: Normal external nose present GENERAL EAR: hearing grossly impaired EXTERNAL EAR: Yes external ears normal Eye: COMMON NORMALS: Equal, round and reactive pupils present, EOMs intact bilaterally, conjunctivae normal and no scleral icterus GENERAL EYE: appearance normal, both eyes and all related structures EYELID: eyelids normal CONJUNCTIVA: Yes conjunctivae normal SCLERA: sclerae normal PUPIL: Yes Equal, round and reactive pupils present Neck/C-Spine: COMMON NORMALS: full ROM, supple and no JVD GENERAL: Yes normal visual inspection Lymph: LYMPHATIC: no lymphadenopathy noted and no lymphedema noted Chest: COMMONS NORMALS: normal inspection of the chest Resp: COMMON NORMALS: normal respiratory effort, No retractions and No use of accessory muscles Cardio: COMMON NORMALS: no JVD, regular rate and regular rhythm RATE: regular rate RHYTHM: regular rhythm GI: COMMON NORMALS: Normal to inspection, nondistended, normoactive bowel sounds present : COMMON NORMALS: Yes no CVA tenderness BLADDER/KIDNEY EXAM: Yes no CVA tenderness Back/Pelvis: COMMON NORMALS: no CVA tenderness and thoracic and lumbar spine normal to inspection Extremity: COMMON NORMALS: normal to inspection, full ROM and capillary refill normal GENERAL: Yes normal exam except as noted Neuro: COMMON NORMALS: patient oriented x3, CN's II-XII intact bilaterally, moves all extremities, no focal motor deficits, no sensory deficits noted and gait normal SENSORIUM/ORIENTATION: Yes alert, Yes oriented to person, Yes oriented to place and Yes oriented to time Psych: COMMON NORMALS: mental status grossly normal, Normal thought process present, cooperative and normal affect THOUGHT PROCESS: Normal thought process present Skin: COMMON NORMALS: no rashes or lesions noted and no wounds GENERAL SKIN EXAM: no rashes or lesions noted Course Vital Signs: Vital signs: Vital Signs Temperature 97.6 F 03/15/25 10:35 Pulse Rate 77 03/15/25 13:05 Respiratory Rate 16 03/15/25 13:05 Blood Pressure 125/85 03/15/25 13:05 Pulse Oximetry 99 03/15/25 13:05 Oxygen Delivery Me thod Room Air 03/15/25 10:35 [facility] - Chest Pain Medical Decision Making Summary Statement: 35 F patient presenting with two-week history of intermittent chest pain, worsening over the past few days, with associated 'fluttering' sensation and nausea. Patient also has recent migraine with photosensitivity and reported vasovagal response to Toradol administration yesterday. Problem List: 1. Chest pain of unclear etiology, 2. Recent migraine, 3. Possible vasovagal syncope related to Toradol, 4. Anxiety/panic symptoms per business process representative's report. Differential Diagnosis: For chest pain: Cardiac (unlikely given age but requires evaluation) - ACS, myocarditis, pericarditis; Gastrointestinal - GERD, esophageal spasm, gastritis; Pulmonary - PE, pneumonia, pleuritis; Musculoskeletal - costochondritis; Psychiatric - anxiety/panic disorder with somatic manifestations. ED Course: Standard chest pain workup initiated including EKG, cardiac enzymes, chest X-ray, and comprehensive metabolic panel. Plan to consider GI cocktail if pain recurs during ED stay. Patient being monitored for any changes in symptoms or vital signs. CMP with elevated liver enzymes. RUQUS is unremarkable. Lab Data 03/15/25 11:04 03/15/25 11:04 Radiology Impressions Abdomen Ultrasound 03/15/25 12:17 IMPRESSION: Study limited by body habitus. Negative gallbladder. Hepatic steatosis. Laboratory Results WBC 8.48 10^3/uL (3.29-11.43) 03/15/25 11:04 RBC 5.54 10^6/uL (3.85-5.65) 03/15/25 11:04 Hgb 14.20 g/dL (11.27-16.99) 03/15/25 11:04 Hct 43.0 % (36-47) 03/15/25 11:04 MCV 77.6 fl (85-98) L 03/15/25 11:04 MCH 25.6 pg (27-33) L 03/15/25 11:04 MCHC 33.0 g/dL (30-55) 03/15/25 11:04 RDW 15.1 % (12.1-15.1) 03/15/25 11:04 Plt Count 341 10^3/cmm (157-399) 03/15/25 11:04 MPV 10.2 fL (7.4-10.4) 03/15/25 11:04 Neut % (Auto) 57.3 % 03/15/25 11:04 Lymph % (Auto) 29.1 % 03/15/25 11:04 Garrett % (Auto) 4.5 % 03/15/25 11:04 Eos % (Auto) 8.0 % 03/15/25 11:04 Baso % (Auto) 0.9 % 03/15/25 11:04 Neut # (Auto) 4.85 10^3/uL (1.8-7.7) 03/15/25 11:04 Lymph # (Auto) 2.5 10^3/uL (0.8-4.8) 03/15/25 11:04 Garrett # (Auto) 0.4 10^3/uL (0.2-0.9) 03/15/25 11:04 Eos # (Auto) 0.7 10^3/uL (0.0-0.8) 03/15/25 11:04 Baso # (Auto) 0.1 10^3/uL (0.0-0.1) 03/15/25 11:04 Nucleated RBC % (auto) 0 % 03/15/25 11:04 Nucleated RBCs # 0.0 /100WBC 03/15/25 11:04 Sodium 137 mmol/L (136-145) 03/15/25 11:04 Potassium 3.4 mmol/L (3.5-5.1) L 03/15/25 11:04 Chloride 96 mmol/L (98-107) L 03/15/25 11:04 Carbon Dioxide 25 mmol/L (22-29) 03/15/25 11:04 Anion Gap 19.4 (5-19) H 03/15/25 11:04 BUN 5 mg/dL (6-20) L 03/15/25 11:04 Creatinine 0.8 mg/dL (0.5-0.9) 03/15/25 11:04 GFR Calculation 81.6 mL/min (90-130) L 03/15/25 11:04 Glucose 100 mg/dL (65-115) 03/15/25 11:04 Calculated Osmolality 281 mOsm/kg (285-295) L 03/15/25 11:04 Calcium 10.1 mg/dL (8.5-10.5) 03/15/25 11:04 Total Bilirubin 0.4 mg/dL (0.15-1.2) 03/15/25 11:04 AST 72 U/L (0-32) H 03/15/25 11:04 ALT 63 U/L (0-33) H 03/15/25 11:04 Alkaline Phosphatase 93 U/L (35-105) 03/15/25 11:04 Troponin T Baseline < 6 ng/L (0-10) 03/15/25 11:04 Troponin T 120 Minute < 6.0 ng/L (0-10) 03/15/25 13:21 Delta Troponin T 0 ABS# (0-10) 03/15/25 13:21 Total Protein 7.6 g/dL (6.6-8.7) 03/15/25 11:04 Albumin 4.6 g/dL (3.5-5.2) 03/15/25 11:04 Globulin 3.0 g/dL (1.3-4.6) 03/15/25 11:04 Lipase 39 U/L (13-60) 03/15/25 11:04 No radiology studies performed this visit Discharge Plan Discharge Patient Disposition: Home Clinical Impression: Chest pain Condition: Stable Prescriptions: No Action lisinopril-hydrochlorothiazide 20-12.5 mg tablet 1 tab PO BID bupropion HCl 100 mg tablet sustained-release 12 hr 100 mg PO QAM Qty: 30 2RF quetiapine 25 mg tablet 25 mg PO BID rizatriptan [Maxalt-PROPERTY MANAGEMENT INTERN] 10 mg tablet,disintegrating See Rx Instructions .ROUTE .COMPLEX Rx Instructions: Take one under tongue at onset of Migraine. May repeat in 2 hours. Max of 2 in 24 hour period. nitroglycerin 0.4 mg tablet, sublingual See Rx Instructions .ROUTE .COMPLEX Rx Instructions: DISSOLVE ONE TABLET UNDER THE TONGUE EVERY 5 MINUTES NEEDED FOR CHEST PAIN. DO NOT EXCEED A TOTAL OF 3 DOSES IN 15 MINUTES. naproxen 500 mg tablet See Rx Instructions .ROUTE .COMPLEX Rx Instructions: TAKE 1 TABLET BY MOUTH TWICE DAILY FOR 7 DAYS THEN TWICE DAILY NEEDED. STOP FOR STOMACH PAIN. fenofibrate nanocrystallized 145 mg tablet 1,458 mg PO DAILY Discharge Orders: Discharge ED (Routine); Ordered 03/15/25 Ordered By: Adal Jimenez Referrals: Jovany Anderson MD [Primary Care Provider, Family Practice] Discharge Diet: Advance as tolerated Discharge Activity: Resume usual activity Patient Instructions: Chest Pain (DC), Patient Portal & Fernando Instructions Print Language: Lao Coding Level of Care Code ED Revenue Stamper for Chg Leonela
--- OUTSIDE RECORDS SUMMARY | 2025-03-15 11:12 | XMS_ITS | Patient Health Record ---
Author Organization [facility] Address [address] [place] [address] Care Team Providers Care Aging Room Operator Name Role Phone Sriram Shieldsa Primary Care Provider [phone] Allergies Allergen (clinical drug ingredient) Drug/Non Drug Allergy documented on EMR Reaction Allergy Type Onset Date Status cefaclor Cefaclor Unknown Drug Allergy Active Penicillin rash Drug Allergy Active Substance with sulfonamide structure and antibacterial mechanism of action (substance) Sulfa Antibiotics Unknown Drug Allergy Active Reason For Referral No Information Medications Medication SIG (Take, Route, Frequency, Duration) Notes Start Date End Date Status QUEtiapine Fumarate 25 MG TAKE 3 TABLETS BY MOUTH ONCE DAILY AT BEDTIME for 30 Active Valsartan 80 MG Take 1 tablet by mouth once daily for 30 Active Lisinopril 20 MG 1 tablet in AM and 1/2 tab in evening Orally Twice daily for 30 days Dose increase Active Gabapentin 100 MG 2 capsules Orally TI D for 90 days Active Ferrous Sulfate 325 (65 Fe) MG 1 tablet every other day along with Vitamin C Orally Every other day for 60 days Active Naproxen 250 MG 1 tablet with food o r milk Orally Twice a day Active risperiDONE 1 MG 1 tablet in AM Orall y Once a day for 30 day(s) Active Ibuprofen 400 MG 1 tablet with food o r milk as needed Orally Three times a day Active Tylenol Extra Strength 500 MG 1 tablet as needed Orally every 6 hrs Active buPROPion HCl ER (SR) 150 MG 1 tablet Orally twice daily for 90 days Active Atorvastatin Calcium 20 MG 1 tablet Orally Once a day for 90 days Active Social History Tobacco Use: Social History Observation Description Date Details (start date - stop date) Current Smoker NA - NA xTobacco Use/Smoking Question Answer Notes Are you a current smoker How often do you smoke cigarettes? every day How many cigarettes a day do you smoke? 5 or les s How soon after you wake up d o you smoke your first cigarette? after 60 minutes Are you interested in quitting? Thinking about q uitting Alcohol Screen (Audit-C) Question Answer Notes Did you have a drink containing alcohol in the p ast year? No Points 0 Interpretation Negative Tobacco use other than smoking: Question Answer Notes Are you an other tobacco user? No PHQ-9 Question Answer Notes Little interest or pleasure in doing things Several days Feeling down, depressed, or hopeless Nearly ever y day Trouble falling or staying a sleep, or sleeping too much Nearly every day Feeling tired or having little energy More than half the days Poor appetite or overeating Several days Feeling bad about yourself, or that you are a failure, or have let yourself or your family down Nearly every day Trouble concentrating on thi ngs, such as reading the newspaper or watching television More than half the days Moving or speaking so slowly that other people could have noticed. Or the opposite ? being so fidgety or restless that you have been moving around a lot more than usual Several days Thoughts that you would be b samson off , or of hurting yourself in some way Several days (Consider Suicide Assessment Risk) Total Score 17 Interpretation Moderately severe depression Problems Problem Type SNOMED Code ICD Code Onset Dates Problem Status W/U Status Risk Notes Problem 20202670 Essential hypertension (I10) Active confirmed Problem 08455494 Bipolar 2 disorder (F31.81) Active confirmed Plan Of Treatment No Information Insurance Providers Payer Name Payer Address Payer Phone Subscriber Number Group Number Insured Name Patient Relationship to Insured Coverage Start Date Coverage End Date Healthy [facility] Medicaid Replacement [address] [address] [place] [address] [id number] Jolynn Merlos Self - patient is the insured Medical (General) History Medical History History ICD Code Left hip pain Low back pain Bipolar 2 Disorder Lumbar Radiculopathy Hypertension Mood disorder 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
[2025-03-15 11:22] LABS: Basophils # 0.1 10^3/uL (0.0-0.1); Basophils % 0.9 %; Eosinophils # 0.7 10^3/uL (0.0-0.8); Lymphocytes # 2.5 10^3/uL (0.8-4.8); Lymphocytes % 29.1 %; Mean Corpuscular Hemoglobin 25.6 pg (27-33); Mean Corpuscular Volume 77.6 fl (85-98); Mean Platelet Volume 10.2 fL (7.4-10.4); Monocytes # 0.4 10^3/uL (0.2-0.9); Monocytes % 4.5 %; Neutrophils # 4.85 10^3/uL (1.8-7.7); Neutrophils % 57.3 %; Nucleated Red Blood Cells % 0 %; Platelet Count 341 10^3/cmm (157-399); Red Blood Count 5.54 10^6/uL (3.85-5.65); Red Cell Distribution Width 15.1 % (12.1-15.1); White Blood Count 8.48 10^3/uL (3.29-11.43)
[2025-03-15 11:35] LABS: Alanine Aminotransferase 63 U/L (0-33); Albumin Level 4.6 g/dL (3.5-5.2); Alkaline Phosphatase 93 U/L (35-105); Anion Gap 19.4 (5-19); Aspartate Amino Transferase 72 U/L (0-32); Blood Urea Nitrogen 5 mg/dL (6-20); Calcium 10.1 mg/dL (8.5-10.5); Carbon Dioxide 25 mmol/L (22-29); Chloride 96 mmol/L (98-107); Creatinine Clr Calc Pharmacy 129.9716; Glomerular Filtration Rate 81.6 mL/min (90-130); Glucose 100 mg/dL (65-115); Lipase 39 U/L (13-60); Osmolality Calculated 281 mOsm/kg (285-295); Potassium 3.4 mmol/L (3.5-5.1); Sodium 137 mmol/L (136-145); Total Bilirubin 0.4 mg/dL (0.15-1.2); Total Protein 7.6 g/dL (6.6-8.7); Troponin(5th) Baseline < 6 ng/L (0-10)
[2025-03-15 12:03] VITALS: BP 112/80; PULSE 77; RESP 16; O2SAT 97
--- NOTE | 2025-03-15 12:17 | US_ITS ---
WS: [id number] RIGHT UPPER QUADRANT ULTRASOUND HISTORY: RUQ pain, elevated liver enzymes COMPARISON: None available. Liver: 14.1 cm in length. Mildly enlarged liver with hepatic steatosis. No mass. Portal Vein: Normal hepatopetal flow with monophasic waveform. Gallbladder: Normally distended gallbladder with no stones or wall thickening. CBD: 0.4 cm Pancreas: Poorly visualized. Right kidney: 10.8 cm in length. Normal size and echogenicity. No hydronephrosis or mass. Aorta and IVC: Unremarkable abdominal aorta and IVC. No ascites. US/US abdomen limited [id number] IMPRESSION: Study limited by body habitus. Negative gallbladder. Hepatic steatosis.
[2025-03-15 13:05] VITALS: BP 125/85; PULSE 77; RESP 16; O2SAT 99
--- NOTE | 2025-03-15 13:05 | ECG_ITS ---
[facility] Test Date: 2025-03-15 Pat Name: Jolynn Merlos Department: Room: Gender: Female [employer]: : 1990 Requested By: Kathy Melendez Order Number: [id number] Reading MD: Measurements Intervals [place] Rate: 65 P: 6 MI: 126 QRS: 48 QRSD: 104 T: 40 QT: 449 QTc: 468 Interpretive Statements SINUS RHYTHM [email or web address]
--- NOTE | 2025-03-15 13:09 | PC.NURSE ---
this nurse assumed pt care from NANDA Harper at 1300.
[2025-03-15 13:49] LABS: Troponin 5 2HR < 6.0 ng/L (0-10); Troponin 5 2HR Delta 0 ABS# (0-10)
== END 2025-03-15 14:58 | disposition home or self-care (01) ==
PROVIDERS: Emergency Medicine; Emergency Provider Emergency Medicine; PCP Family Medicine
DX: R07.9 Chest pain, unspecified (principal); I10 Essential (primary) hypertension
CPT/HCPCS: 36415; 76705; 80053; 83690; 84484; 85025; 93005; 99284

== ENCOUNTER 2025-03-21 13:29 | Outpatient (CLI) | payer BC, MEDICAID, SELFPAY ==
--- NOTE | 2025-03-21 13:33 | MR_ITS ---
WS: [id number] MRI BRAIN WITHOUT CONTRAST HISTORY: NEAR SYNCOPE COMPARISON: None available. TECHNIQUE: Diffusion imaging, multiplanar T1, T2 and FLAIR imaging obtained. No evidence for acute infarct or hemorrhage. [place]-white matter differentiation is normal. No remote or acute infarcts are volume loss. Ventricles and extra-axial spaces are normal. No inferior displacement of cerebellar tonsils. The sella turcica and pituitary gland are unremarkable. Dural venous sinuses and deering of Ramos demonstrate no abnormality on this unenhanced studies. Paranasal sinuses: Clear. Mastoid air cells: Normal. Calvarium and scalp: Intact. MR/MR head wo con* [id number] IMPRESSION: 1. Unremarkable noncontrast MRI brain. 2. No prior infarcts or signal abnormalities.
== END 2025-03-21 13:30 | disposition home or self-care (01) ==
LOC: RAD 13:30
PROVIDERS: PCP Family Medicine; Visit Provider Family Medicine
DX: R55 Syncope and collapse (principal)
CPT/HCPCS: 70551

== ENCOUNTER → 2025-05-03 09:58 | Outpatient (BNVA) | payer BC, MEDICAID, SELFPAY | PROVIDERS: PCP Family Medicine; Referring Provider Family Medicine; Visit Provider Internal Medicine Cardiovascular Disease | DX: R07.9 Chest pain, unspecified (principal) | CPT/HCPCS: 93005 ==